=== PATIENT | female | born 1970 ===

== ENCOUNTER → 2020-12-10 09:04 | Outpatient (BNVA) | payer OTHER, SELFPAY | PROVIDERS: PCP Internal Medicine; Referring Provider Internal Medicine; Visit Provider Physician Assistant Surgical ==

== ENCOUNTER → 2020-12-16 08:20 | Outpatient (BNVA) | payer OTHER, SELFPAY | PROVIDERS: PCP Internal Medicine; Visit Provider Surgery ==

== ENCOUNTER 2020-12-18 07:39 | Outpatient (REF) | payer OTHER, SELFPAY ==
--- NOTE | ~2020-12-18 | XR_ITS ---
EXAMINATION: XR FOOT, BILATERAL CLINICAL INFORMATION: Bilateral foot pain. COMPARISON: 06/02/2017 TECHNIQUE: 3 views of each foot. FINDINGS: RIGHT FOOT: Three views of the right foot do not demonstrate any evidence of acute fracture or dislocation. No significant soft tissue swelling is appreciated. Joint spaces are maintained. Calcaneal spurs are seen at the sites of insertion of the Achilles and plantar tendons. Arterial vascular calcifications are seen. LEFT FOOT: Three views of the left foot do not demonstrate any evidence of acute fracture or dislocation. No radiopaque foreign bodies. Joint spaces are maintained. Calcaneal spurs at sites of insertion of Achilles and plantar tendons evident. Vascular calcifications are seen. XR/XR foot RT 2V IMPRESSION: Prominent bilateral calcaneal spurs at sites of insertion of plantar and Achilles tendons.
--- NOTE | ~2020-12-18 | XR_ITS ---
EXAMINATION: XR FOOT, BILATERAL CLINICAL INFORMATION: Bilateral foot pain. COMPARISON: 06/02/2017 TECHNIQUE: 3 views of each foot. FINDINGS: RIGHT FOOT: Three views of the right foot do not demonstrate any evidence of acute fracture or dislocation. No significant soft tissue swelling is appreciated. Joint spaces are maintained. Calcaneal spurs are seen at the sites of insertion of the Achilles and plantar tendons. Arterial vascular calcifications are seen. LEFT FOOT: Three views of the left foot do not demonstrate any evidence of acute fracture or dislocation. No radiopaque foreign bodies. Joint spaces are maintained. Calcaneal spurs at sites of insertion of Achilles and plantar tendons evident. Vascular calcifications are seen. XR/XR foot LT 2V IMPRESSION: Prominent bilateral calcaneal spurs at sites of insertion of plantar and Achilles tendons.
--- NOTE | ~2020-12-18 | XR_ITS ---
EXAMINATION: XR CHEST CLINICAL INFORMATION: BMI between 39 and 40 COMPARISON: March 12, 2016 TECHNIQUE: 2 views of the chest were obtained. FINDINGS: No significant abnormality is noted involving the heart, lungs, mediastinum, bony thorax or soft tissues. XR/XR chest 2V IMPRESSION: No acute disease.
--- NOTE | 2020-12-18 07:51 | ECG_ITS ---
Test Reason : z68.39 Blood Pressure : / mmHG Vent. Rate : 069 BPM Atrial Rate : 069 BPM P-R Int : 152 ms QRS Dur : 086 ms QT Int : 382 ms P-R-T Axes : 004 008 021 degrees QTc Int : 409 ms Normal sinus rhythm Normal ECG No significant changes seen Referred By: Song Bellamy Electronically Signed By:BELL CHERY MD
[2020-12-18 08:54] LABS: Basophils Percent Auto 0.3 % (0-2); Imm Gran Abs Auto 0.02 X10*3/uL (0.00-0.03); Imm Gran Pct Auto 0.3 % (0.0-0.4); MANUAL DIFF FLAG SCAN; Mean Corpuscular Hemoglobin 29.6 pg (27.0-33.0); PLT CLUMP 1; SCAN SMEAR FLAG 1
[2020-12-18 08:56] LABS: Eosinophils Absolute Auto 0.1 X10*3/uL (0.0-0.4); Eosinophils Percent Auto 2.4 % (0-4); Hematocrit 39.3 % (37-47); Hemoglobin 13.2 g/dl (12.0-16.0); Lymphocytes Absolute Auto 1.8 X10*3/uL (1.2-4.9); Lymphocytes Percent Auto 30.8 % (20-40); Mean Corpuscular HGB Conc 33.6 g/dl (31.0-35.0); Mean Corpuscular Volume 88.1 fL (80-98); Mean Platelet Volume 10.7 fL (9.4-12.3); Monocytes Absolute Auto 0.4 X10*3/uL (0.1-1.2); Monocytes Percent Auto 6.3 % (2-11); Neutrophils Absolute Auto 3.5 X10*3/uL (2.0-8.3); Neutrophils Percent Auto 59.9 % (45-73); Platelet Count 174 X10*3/uL (160-400); Red Blood Count 4.46 X10*6/uL (4.20-5.50); Red Cell Distribution Width 11.9 % (11.0-16.0); White Blood Count 5.9 X10*3/uL (4.8-10.8)
[2020-12-18 08:59] LABS: Estimated Average Glucose 203 mg/dL; Hemoglobin A1c % 8.7 %
[2020-12-18 09:13] LABS: Cholesterol 271 mg/dL; HDL Cholesterol 38 mg/dL; LDL Cholesterol Calculated 190 mg/dl; Triglycerides 219 mg/dL
[2020-12-18 09:15] LABS: Alanine Aminotransferase 32 U/L (0-31); Albumin Level 4.1 g/dL (3.5-5.0); Alkaline Phosphatase 72 U/L (39-117); Anion Gap 13 (12-20); Aspartate Amino Transferase 19 U/L (5-31); Bilirubin Total 0.4 mg/dL (0.0-1.0); Blood Urea Nitrogen 10 mg/dL (9-16); C Reactive Protein 0.46 mg/dL (< or = 0.50); Calcium 9.5 mg/dL (8.4-10.2); Carbon Dioxide 24 mmol/L (22-29); Chloride 105 mmol/L (96-108); Cholesterol 271 mg/dL; Estimated Glomerular Filt Rate > 60; Glucose Random 202 mg/dL (60-115); HDL Cholesterol 38 mg/dL; Iron 67 mcg/dL (30-160); LDL Cholesterol Calculated 190 mg/dl; Percent Iron Saturation 21 % (15-50); Potassium 4.4 mmol/L (3.3-5.1); SLIDE REVIEW VERIFIED; Sodium 138 mmol/L (135-145); Total Iron Binding Capacity 326 mcg/dL (228-428); Triglycerides 216 mg/dL; Unsaturated Iron Binding 259 ug/dL
[2020-12-18 09:39] LABS: Thyroid Stimulating Hormone 1.42 uIU/mL (0.32-4.0)
[2020-12-18 09:41] LABS: Ferritin 165 ng/mL (10-250); Insulin 15 uU/mL (2-29); TSH reflex Free T4 1.38 uIU/mL (0.32-4.0); Vitamin D 25-OH Total 17.7 ng/mL (>30)
[2020-12-18 09:51] LABS: Folate 14.8 ng/mL (> or = 4.0); Vitamin B12 339 pg/mL (200-900)
[2020-12-18 10:47] LABS: Creatinine Urine 314.71 mg/dL; Microalbum/Creatinine Ratio Ur 13.6 ug/mg cr
[2020-12-18 13:34] LABS: H Pylori Breath Test Positive (Negative)
[2020-12-22 16:01] LABS: Calcium (PTHI) 9.2 mg/dL (8.6-10.2); PTHI 59 pg/mL (14-64)
[2020-12-23 04:51] LABS: Vitamin A 42 mcg/dL (38-98)
[2020-12-23 06:21] LABS: Zinc 86 mcg/dL (60-130)
[2020-12-23 15:25] LABS: Vitamin B1 6 nmol/L (8-30)
[2020-12-25 15:21] LABS: Vitamin D 25-OH, D2 <4 ng/mL; Vitamin D 25-OH, D3 18 ng/mL; Vitamin D 25-OH, Total 18 ng/mL (30-100)
== END 2020-12-18 07:40 | disposition home or self-care (01) ==
LOC: HO.XRAY 07:39
PROVIDERS: Absent Provider Internal Medicine; PCP Internal Medicine; Visit Provider Surgery
DX: E11.65 Type 2 diabetes mellitus with hyperglycemia (principal); E55.9 Vitamin D deficiency, unspecified; E66.01 Morbid (severe) obesity due to excess calories; Z68.41 Body mass index [BMI] 40.0-44.9, adult; E78.5 Hyperlipidemia, unspecified; M79.671 Pain in right foot; M79.672 Pain in left foot
CPT/HCPCS: 36415; 71046; 73620; 80053; 80061; 82043; 82306; 82607; 82728; 82746; 83013; 83036; 83525; 83540; 83970; 84425; 84443; 84590; 84630; 85025; 86140; 93005; 99211

== ENCOUNTER → 2020-12-30 11:00 | Outpatient (BNVA) | payer OTHER, SELFPAY | PROVIDERS: PCP Internal Medicine; Referring Provider Internal Medicine; Visit Provider Dietitian, Registered | DX: E66.01 Morbid (severe) obesity due to excess calories (principal); E11.65 Type 2 diabetes mellitus with hyperglycemia; Z68.41 Body mass index [BMI] 40.0-44.9, adult | CPT/HCPCS: 97802 ==

== ENCOUNTER → 2021-01-15 08:03 | Outpatient (BNVA) | payer OTHER, SELFPAY | PROVIDERS: PCP Internal Medicine; Visit Provider Surgery ==

== ENCOUNTER 2021-01-20 08:49 | Outpatient (REF) | payer OTHER, SELFPAY ==
--- NOTE | ~2021-01-20 | FL_ITS ---
EXAMINATION: XR GI SERIES CLINICAL INFORMATION: Obesity COMPARISON: None TECHNIQUE: Upper GI with air FINDINGS: Normal swallowing reflex. Normal esophageal motility and distention. There is concavity/depression of the barium column along the the left lateral aspect of the distal esophagus at the GE junction. A mass lesion in this region cannot be excluded. There is normal passage of the barium to the stomach into the small bowel. No mass or mucosal lesions are seen in the stomach or the duodenal bulb. No evidence of hiatal hernia. No reflux is seen. FLUOROSCOPY TIME: 1.4 minutes DOSE AREA PRODUCT: 21.2 uGy-m2 (microgray-meter squared) FL/FL upper GI series IMPRESSION: 1. Concavity/depression of the barium column along the left lateral aspect of the distal esophagus at the gastroesophageal junction. The mass lesion in this region cannot be excluded. Further evaluation with cross-sectional imaging or endoscopy as clinically warranted. 2. No evidence of hiatal hernia. 3. No reflux is seen.
--- NOTE | ~2021-01-20 | US_ITS ---
EXAMINATION: US COMPLETE ABDOMEN WITH LIVER ELASTOGRAPHY CLINICAL INFORMATION: Obesity. COMPARISON: None TECHNIQUE: Real-time imaging of the abdominal viscera. Noninvasive ultrasound liver fibrosis assessment is performed using Mary Anne ElastPQ point quantification shear wave elastography (pSWE) with a C5-2 MHz transducer. Multiple elastography samples are obtained. FINDINGS: PANCREAS: Not well visualized due to bowel gas. ABDOMINAL AORTA: The proximal, middle, and distal aortic segments are normal in caliber. INFERIOR VENA CAVA: Visualized portions are normal. LIVER: Liver echotexture is increased. The liver demonstrates normal size and contour. No focal lesion or intrahepatic biliary duct dilatation. The right lobe measures 17.3 cm in length. The left lobe measures 11.6 cm in length. Portal flow is normal/hepatopetal. Shear wave liver elastography median stiffness is 1.27 m/s (reference: Normal median stiffness is 1.3 m/s or less). IQR/median stiffness to assess sampling precision is 0.17 (reference: Good quality data set is IQR/median stiffness of 0.15 or less). GALLBLADDER: The gallbladder is normal in size. No gallstones are seen. There may be mild adenomyomatosis of the gallbladder wall. COMMON BILE DUCT: The proximal common bile duct is normal in caliber measuring 0.6 cm. There is focal dilatation of the distal common bile duct measuring up to 1.7 cm. RIGHT KIDNEY: Normal. No hydronephrosis. No renal calculi or focal parenchymal lesions. The kidney measures 11.3 cm in maximum dimension. LEFT KIDNEY: Normal. No hydronephrosis. No renal calculi or focal parenchymal lesions. The kidney measures 11.3 cm in maximum dimension. SPLEEN: Normal. The spleen measures 12 cm in maximum dimension. FREE FLUID: None. US/US abdomen comp w elastography IMPRESSION: 1. Echogenic liver suggestive of fatty infiltration. Dilated distal common bile duct questionable for choledochocele or choledochocyst. Probable mild adenomyomatosis of the gallbladder wall. Limited visualization of the pancreas. 2. Liver Elastography: Adequate liver sampling. Normal liver stiffness. REFERENCE: Society of Radiologists in Ultrasound Liver Stiffness Thresholds (2020): LIVER STIFFNESS THRESHOLDS: *Liver Stiffness equal or less than 1.3 m/s: High probability of being normal. *Liver Stiffness less than 1.7 m/s: In the absence of other known clinical signs, rules out compensated advanced chronic liver disease. *Liver Stiffness 1.7-2.1 m/s: Suggestive of compensated advanced chronic liver disease but need further test for confirmation. *Liver Stiffness over 2.1 m/s: Rules in compensated advanced chronic liver disease. *Liver Stiffness over 2.4 m/s: Suggestive of clinically significant portal hypertension. QUALITY OF DATA SET: *IQR/Median value equal or less than 0.15 implies a quality data set. *IQR/Median value over 0.15 implies a poor quality data set. SIGNIFICANT CHANGE FROM PRIOR EXAM: Significant change if liver stiffness measurement is 10% or greater from prior exam. OTHER CONSIDERATIONS: The stage of liver fibrosis may be overestimated in the setting of acute hepatitis, liver inflammation, elevated liver function tests, hepatic vascular congestion, obstructive cholestasis, non-fasting state, and infiltrative diseases such as amyloidosis and lymphoma. In some patients with NAFLD, the liver stiffness thresholds for compensated advanced chronic liver disease may be lower. In causes other than viral hepatitis and NAFLD, liver stiffness thresholds are not well established.
== END 2021-01-20 08:50 | disposition home or self-care (01) ==
LOC: HO.US 08:49
PROVIDERS: PCP Internal Medicine; Visit Provider Surgery
DX: Z01.818 Encounter for other preprocedural examination (principal); K21.9 Gastro-esophageal reflux disease without esophagitis; E66.9 Obesity, unspecified; Z68.39 Body mass index [BMI] 39.0-39.9, adult; E11.65 Type 2 diabetes mellitus with hyperglycemia
CPT/HCPCS: 74240; 76705; 76981

== ENCOUNTER → 2021-01-22 08:02 | Outpatient (BNVA) | payer OTHER, SELFPAY | PROVIDERS: PCP Internal Medicine; Referring Provider Surgery; Visit Provider Dietitian, Registered | DX: E66.9 Obesity, unspecified (principal); Z68.39 Body mass index [BMI] 39.0-39.9, adult | CPT/HCPCS: 97803 ==

== ENCOUNTER 2021-01-28 08:55 | Outpatient (REF) | payer OTHER, SELFPAY ==
[2021-01-31 15:04] LABS: H Pylori Breath Test Negative (Negative)
== END 2021-01-28 08:56 | disposition home or self-care (01) ==
LOC: HO.LNP 08:55
PROVIDERS: PCP Internal Medicine; Referring Provider Internal Medicine; Visit Provider Physician Assistant
DX: Z01.818 Encounter for other preprocedural examination (principal); Z11.0 Encounter for screening for intestinal infectious diseases
CPT/HCPCS: 83013; 99211

== ENCOUNTER → 2021-02-10 08:02 | Outpatient (BNVA) | payer OTHER, SELFPAY | PROVIDERS: PCP Internal Medicine; Visit Provider Surgery ==

== ENCOUNTER 2021-02-12 06:57 | Outpatient (REF) | payer OTHER, SELFPAY ==
--- NOTE | ~2021-02-12 | CT_ITS ---
EXAMINATION: CT CHEST WITH CONTRAST CLINICAL INFORMATION: Other specified diseases of the esophagus COMPARISON: Previous chest x-ray most recent December 30 and and upper GI 01/20/2021 TECHNIQUE: Multidetector volumetric CT imaging of the chest was obtained after the administration of 85 mL of Omnipaque 350 intravenous contrast without immediate adverse reactions. Axial MIP volume rendering provided. Sagittal and coronal reformatted images were obtained. This CT examination was performed using dose optimization techniques as appropriate, variously including the following: *Automated exposure control *Adjustment of mA and/or kV according to patient size (this includes techniques or standardized protocols for targeted exams where dose is matched to indication/reason for exam; i.e. extremities or head) *Use of iterative reconstruction technique DLP: 234 mGy-cm FINDINGS: HAND DEVELOPER: Unremarkable LUNGS: The lungs are clear with no evidence of inflammation or nodules. MEDIASTINUM: The mediastinum is normal. The esophagus is unremarkable. PLEURA: There is no pleural effusion. No pleural mass or thickening. AXILLA: No lymphadenopathy. UPPER ABDOMEN: Unremarkable OSSEOUS STRUCTURES: Unremarkable. CT/CT chest w con IMPRESSION: Unremarkable examination. Fleischner guidelines were followed.
--- NOTE | ~2021-02-12 | CT_ITS ---
EXAMINATION: CT ABDOMEN AND PELVIS WITH CONTRAST CLINICAL INFORMATION: Follow-up abnormal esophagus seen on upper GI COMPARISON: None TECHNIQUE: Multidetector volumetric images were obtained from the superior aspect of the liver through the pubic symphysis following administration 85 mL of Omnipaque 350 intravenous contrast. Sagittal and coronal reformatted images were obtained on the technologist's workstation. Oral contrast: Yes This CT examination was performed using dose optimization techniques as appropriate, variously including the following: *Automated exposure control *Adjustment of mA and/or kV according to patient size (this includes techniques or standardized protocols for targeted exams where dose is matched to indication/reason for exam; i.e. extremities or head) *Use of iterative reconstruction technique DLP: 430 mGy-cm FINDINGS: LUNG BASES: The visualized lung bases are unremarkable. LIVER, GALLBLADDER, AND BILIARY TREE: The liver is normal in size and shape. Liver is slightly low in attenuation suggestive of mild fatty infiltration. No focal hepatic lesion or intrahepatic biliary ductal dilatation is present. There is focal dilatation of the proximal common bile duct measuring up to 2.2 cm. Common bile duct is normal in caliber distally in the head of the pancreas. The gallbladder is unremarkable with no evidence of radiopaque gallstones, gallbladder wall thickening, or obvious pericholecystic inflammatory changes. PANCREAS: Unremarkable. SPLEEN: Unremarkable. ADRENAL GLANDS: Unremarkable. KIDNEYS AND URETERS: The kidneys are normal in size, shape, and attenuation. No hydronephrosis, hydroureter, or calculi seen. No perinephric stranding. BLADDER: Unremarkable. GASTROINTESTINAL TRACT: The small and large bowel are unremarkable. The appendix is unremarkable. The stomach is unremarkable. The distal thoracic esophagus is normal-appearing. No mass or wall thickening is seen. The right diaphragmatic crura appear prominent adjacent to the distal thoracic esophagus, question accounting for mass effect appreciated on upper GI. ABDOMINAL WALL: No significant hernia is appreciated. LYMPH NODES: Normal. VASCULAR: Unremarkable. PELVIC VISCERA: Unremarkable. OSSEOUS STRUCTURES: Unremarkable. CT/CT abdomen pelvis w con IMPRESSION: Normal-appearing esophagus and stomach. No mass seen. The diaphragmatic crura appear prominent and may account for mass effect seen in the left distal thoracic esophagus. Focal dilatation of the common bile duct measuring up to 2.2 cm. Appearance is again questionable for choledochocele or choledochocyst. Mild fatty infiltration of the liver. Fleischner guidelines were followed.
[2021-02-12] MEDS: iohexoL 350 MG/ML 100 ML INFUS..BTL 85 ML IV (08:47)
== END 2021-02-12 06:58 | disposition home or self-care (01) ==
LOC: HO.CT 06:57
PROVIDERS: PCP Internal Medicine; Visit Provider Surgery
DX: K22.89 Other specified disease of esophagus (principal)
CPT/HCPCS: 71260; 74177; Q9967

== ENCOUNTER → 2021-03-26 08:22 | Outpatient (BNVA) | payer OTHER, SELFPAY | PROVIDERS: PCP Internal Medicine; Visit Provider Surgery ==

== ENCOUNTER 2021-04-27 15:54 | Outpatient (REF) | payer OTHER, SELFPAY ==
[2021-04-28 14:01] LABS: H Pylori Breath Test Negative (Negative)
== END 2021-04-27 15:55 | disposition home or self-care (01) ==
LOC: CF 15:54
PROVIDERS: PCP Internal Medicine; Referring Provider Internal Medicine; Visit Provider Nurse Practitioner
DX: A04.8 Other specified bacterial intestinal infections (principal); K22.89 Other specified disease of esophagus
CPT/HCPCS: 36415; 83013; 99202

== ENCOUNTER 2021-04-29 09:06 | Outpatient (REF) | payer OTHER, SELFPAY ==
[2021-04-29 09:32] LABS: MANUAL DIFF FLAG NO
[2021-04-29 09:51] LABS: Basophils Percent Auto 0.4 % (0-2); Eosinophils Absolute Auto 0.1 X10*3/uL (0.0-0.4); Eosinophils Percent Auto 1.3 % (0-4); Hematocrit 38.8 % (37.0-47.0); Hemoglobin 12.8 g/dl (12.0-16.0); Imm Gran Abs Auto 0.02 X10*3/uL (0.00-0.03); Imm Gran Pct Auto 0.4 % (0.0-0.4); Lymphocytes Absolute Auto 1.7 X10*3/uL (1.2-4.9); Lymphocytes Percent Auto 32.8 % (20-40); Mean Corpuscular Volume 91.1 fL (80.0-98.0); Monocytes Absolute Auto 0.3 X10*3/uL (0.1-1.2); Monocytes Percent Auto 6.1 % (2-11); Neutrophils Absolute Auto 3.1 x10*3/uL (2.0-8.3); Platelet Count 226 X10*3/uL (160-400); Red Blood Count 4.26 X10*6/uL (4.20-5.50); Red Cell Distribution Width 11.7 % (11.0-16.0); White Blood Count 5.2 X10*3/uL (4.8-10.8)
[2021-04-29 10:31] LABS: Alanine Aminotransferase 21 U/L (0-31); Albumin Level 4.3 g/dL (3.5-5.0); Alkaline Phosphatase 75 U/L (39-117); Anion Gap 12 (12-20); Aspartate Amino Transferase 14 U/L (5-31); Bilirubin Total 0.6 mg/dL (0.0-1.0); Blood Urea Nitrogen 14 mg/dL (9-16); Calcium 9.7 mg/dL (8.4-10.2); Carbon Dioxide 29 mmol/L (22-29); Chloride 102 mmol/L (96-108); Cholesterol 248 mg/dL; Estimated Glomerular Filt Rate > 60; Glucose Fasting 220 mg/dL (60-99); HDL Cholesterol 49 mg/dL; LDL Cholesterol Calculated 151 mg/dl; Potassium 4.7 mmol/L (3.3-5.1); Sodium 138 mmol/L (135-145); Total Protein 7.3 g/dL (6.5-8.0); Triglycerides 244 mg/dL
[2021-04-29 11:24] LABS: Creatinine Urine 204.02 mg/dL; Microalbum/Creatinine Ratio Ur 11.7 ug/mg cr
[2021-05-04 11:42] LABS: Vitamin D 25-OH, D2 <4 ng/mL; Vitamin D 25-OH, D3 25 ng/mL; Vitamin D 25-OH, Total 25 ng/mL (30-100)
== END 2021-04-29 09:07 | disposition home or self-care (01) ==
LOC: HO.LAB 09:06
PROVIDERS: Absent Provider Internal Medicine; PCP Internal Medicine; Visit Provider Nurse Practitioner
DX: A04.8 Other specified bacterial intestinal infections (principal); K22.89 Other specified disease of esophagus; E78.2 Mixed hyperlipidemia; E78.5 Hyperlipidemia, unspecified; E11.9 Type 2 diabetes mellitus without complications; E55.9 Vitamin D deficiency, unspecified
CPT/HCPCS: 36415; 80053; 80061; 82043; 82306; 85025

== ENCOUNTER → 2021-05-20 12:37 | Outpatient (BNVA) | payer OTHER, SELFPAY | PROVIDERS: PCP Internal Medicine; Referring Provider Internal Medicine; Visit Provider Nurse Practitioner | DX: A04.8 Other specified bacterial intestinal infections (principal) | CPT/HCPCS: 99212 ==

== ENCOUNTER → 2021-08-06 12:50 | Outpatient (BNVA) | payer OTHER, SELFPAY | PROVIDERS: PCP Internal Medicine; Visit Provider Internal Medicine Endocrinology, Diabetes & Metabolism | DX: E11.65 Type 2 diabetes mellitus with hyperglycemia (principal); E78.2 Mixed hyperlipidemia | CPT/HCPCS: 82947; 83036; 99202 ==

== ENCOUNTER 2021-10-15 13:06 | Emergency (ER) | payer OTHER, SELFPAY ==
--- NOTE | ~2021-10-15 | XR_ITS ---
EXAMINATION: XR FOOT, RIGHT CLINICAL INFORMATION: Rule out heel foreign body. COMPARISON: None TECHNIQUE: AP, lateral, and oblique views of the right foot. FINDINGS: There is no acute fracture or dislocation. The tarsal bones are normally aligned. Small plantar and retrocalcaneal spurs are noted. Mild to moderate small vessel atherosclerosis is seen. There is mild soft tissue swelling. No radiopaque foreign body. XR/XR foot RT 2V IMPRESSION: 1. Mild soft tissue swelling without radiopaque foreign body. 2. Small degenerative calcaneal spurs.
[2021-10-15 13:49] VITALS: BP 159/99; PULSE 100; RESP 18; TEMP 36.8; O2SAT 97; BMI 39.0
--- NOTE | 2021-10-15 14:34 | ED_ITS ---
HPI - Extremity Injury (Lower) General Chief Complaint: Extremity Injury, Lower Stated Complaint: R foot pain Time Seen by Provider: 10/15/21 14:20 Source: patient Mode of arrival: ambulatory Limitations: no limitations History of Present Illness HPI Narrative: Patient presents emergency department for evaluation of right heel pain. She states that she was walking at home barefoot, believes that she stepped on a piece of uncooked rice. She wiped this off of her foot. Now she is experiencing localized pain to the heel when she is bearing weight/walking. She reports a small red yordy to the bottom of her foot. She is concerned that there is a foreign body within the foot. Related Data Previous Rx's Medication Instructions Recorded mecobalamin (vitamin B12) 1,000 1,000 mcg sublingual DAILY #30 tabs 12/24/20 mcg disintegrating tablet,sublingual thiamine HCl (vitamin B1) 100 mg 100 mg PO DAILY #30 tabs 12/24/20 tablet docusate sodium 250 mg capsule 250 mg PO BEDTIME PRN constipation 02/10/21 30 days #30 caps cholecalciferol (vitamin D3) 125 125 mcg PO DAILY #30 caps 05/04/21 mcg (5,000 unit) capsule blood sugar diagnostic (FreeStyle #50 ea 08/05/21 Lite Strips) dulaglutide 1.5 mg/0.5 mL 1.5 mg (0.5 mL) subcut QWEEK #2 mL 08/06/21 subcutaneous pen injector (Trulicity) pioglitazone 15 mg tablet (Actos) 15 mg PO DAILY #30 tabs 08/06/21 atorvastatin 40 mg tablet (Lipitor) 40 mg PO DAILY #30 tabs 08/15/21 Allergies Allergy/AdvReac Type Severity Reaction Status Date / Time metformin AdvReac Intermediate elevated Verified 10/15/21 13:49 blood sugar Review of Systems Review of Systems: Musculoskeletal: Positive foot pain as noted in the HPI Yes all other systems are reviewed and are negative PMFSH Past Medical History Attestation statement: The following information was validated with the patient. Source: old records reviewed Medical History Constipation by delayed colonic transit Diabetes type 2, uncontrolled TEREZA (generalized anxiety disorder) Left foot pain Minimal recurrent major depressive disorder Mixed hyperlipidemia Morbid obesity with BMI of 40.0-44.9, adult Right foot pain Surgical History History of colonoscopy History of endoscopy History of tubal ligation History of wisdom tooth extraction Family History Family History Mother Hypertension Diabetes Father Anxiety and depression Sister Hypertension Brother No problems noted. Brother No problems noted. Brother No problems noted. Daughter No problems noted. Son No problems noted. Son No problems noted. Son No problems noted. Social History Social History Housing: Apartment Alcohol intake: current Alcohol intake frequency: holidays/special occasions only Alcohol type: wine Patient Tobacco Use Status: Never used Tobacco e-Cigarette/Vaping Use: Never Used Second Hand Smoke Exposure: No Advance Directives: No Advance Directives Information Provided: No service: No Current occupational status: unemployed Cognitive needs: No Hearing needs: No Vision needs: No Physical Exam Vital Signs: Vital Signs: Last Vital Signs Temp 98.6 F 10/15/21 15:48 Pulse 75 10/15/21 15:48 Resp 17 10/15/21 15:48 BP 151/89 H 10/15/21 15:48 Pulse Ox 99 10/15/21 15:48 O2 Del Method 10/15/21 15:48 BMI result Body Mass Index 39.0 Appearance: Alert.?Oriented to person, place and time. No acute distress.?Normal affect.?? Neck: Normal inspection.? Neck supple.?? CVS: Heart sounds normal. Normal heart rate and rhythm.? Pulses normal.?? Respiratory: No respiratory distress.? Lung sounds clear to auscultation bilaterally?? Abdomen: Soft and non-tender. Skin: Skin warm and dry.? Normal skin color.? Extremities: No lower extremity edema.? No calf ttp. Positive 2+ DP/PT pulse bilaterally. Right heel with pinpoint red yordy, no surrounding erythema, swelling. No palpable foreign body. Neuro: Moves all extremities spontaneously. Sensation intact bilaterally. No mo tor deficits. Ambulates with normal steady gait. Course Course Course Narrative: Patient is a 51-year-old female with a past medical history of hyperlipidemia, obesity, anxiety wound type 2 diabetes presents emergency department for evaluation of right foot pain. XR the right foot obtained to exclude foreign body, which reveals mild soft tissue swelling without radiopaque foreign body. Not consistent with cellulitis, or concerning for infection. Discussed rest, ice, elevation of foot when possible. Follow up primary care provider as needed. Discussed worrisome signs and symptoms return back to emergency department for. All questions were answered, and patient was discharged home in stable condition, ambulatory with a steady gait. MDM - Extremity Injury (Lower) Medical Records Attestation: I reviewed the patient's medical records. Lab Data Attestation: I reviewed the patient's lab results. Imaging Data XR foot: Radiologist's impression: XR/XR foot RT 2V IMPRESSION: ? 1. Mild soft tissue swelling without radiopaque foreign body. 2. Small degenerative calcaneal spurs. Discharge Plan Discharge Clinical Impression: Acute pain of right foot Patient Disposition: Home, Self-Care Additional Instructions: The x-ray of your right foot was normal. Does not show any radiopaque foreign body left in your foot. Be sure to rest, ice, elevate the foot when possible, you may soak your foot in warm water additionally. Tylenol may be used as needed for pain. Follow-up with your primary care provider as needed. Prescriptions: No Action thiamine HCl (vitamin B1) 100 mg tablet 100 mg PO DAILY Qty: 30 2RF mecobalamin (vitamin B12) 1,000 mcg tablet,disintegrating 1,000 mcg sublingual DAILY Qty: 30 2RF Rx Instructions: place tablet under tongue and allow to dissolve for at least30 secs before swallowing cholecalciferol (vitamin D3) 125 mcg (5,000 unit) capsule 125 mcg PO DAILY Qty: 30 2RF (DME) FreeStyle Lite Strips Strip See Rx Instructions .ROUTE .MEDSUPPLY Qty: 50 5RF Rx Instructions: Twice a day atorvastatin [Lipitor] 40 mg tablet 40 mg PO DAILY Qty: 30 5RF docusate sodium 250 mg capsule 250 mg PO BEDTIME PRN (Reason: constipation) 30 Days Qty: 30 2RF Trulicity 1.5 mg/0.5 mL pen injector 1.5 mg subcut QWEEK Qty: 2 5RF pioglitazone [Actos] 15 mg tablet 15 mg PO DAILY Qty: 30 4RF Interventions: ED Discharge Assessment Last Done: 10/15/21 15:54 Discharge Date/Time: 10/15/21 15:56
[2021-10-15 15:48] VITALS: BP 151/89; PULSE 75; RESP 17; TEMP 37; O2SAT 99
== END 2021-10-15 15:56 | disposition home or self-care (01) ==
PROVIDERS: Emergency Provider Emergency Medicine; PCP Internal Medicine
DX: M79.671 Pain in right foot (principal); Z79.899 Other long term (current) drug therapy
CPT/HCPCS: 73620; 99283

== ENCOUNTER 2022-05-05 13:15 | Emergency (ER) | payer OTHER, SELFPAY ==
--- NOTE | 2022-05-05 13:43 | ED.EAR ---
HPI - Ear Problem General Chief complaint: Ear Problems Stated complaint: both ear pain and sore throat Time Seen by Provider: 05/05/22 15:22 Source: patient Mode of arrival: ambulatory Limitations: no limitations History of Present Illness HPI Narrative: Patient is a 52-year-old female who presents emergency department for evaluation of bilateral ear pain and sore throat x 2 days. Denies difficulty swallowing, denies any drainage from the ear, denies decreased hearing. Denies known sick contacts. Denies any fevers or chills, cough, shortness of breath, difficulty breathing, chest pain, nausea vomiting, abdominal pain. Related Data Previous Rx's Medication Instructions Recorded mecobalamin (vitamin B12) 1,000 1,000 mcg sublingual DAILY #30 tabs 12/24/20 mcg disintegrating tablet,sublingual thiamine HCl (vitamin B1) 100 mg 100 mg PO DAILY #30 tabs 12/24/20 tablet docusate sodium 250 mg capsule 250 mg PO BEDTIME PRN constipation 02/10/21 30 days #30 caps cholecalciferol (vitamin D3) 125 125 mcg PO DAILY #30 caps 05/04/21 mcg (5,000 unit) capsule blood sugar diagnostic (FreeStyle #50 ea 08/05/21 Lite Strips) atorvastatin 40 mg tablet (Lipitor) 40 mg PO DAILY #30 tabs 08/15/21 blood-glucose meter (FreeStyle #1 ea 03/22/22 Lite Meter kit) pioglitazone 15 mg tablet (Actos) 15 mg PO DAILY #30 tabs 03/28/22 semaglutide 0.25 mg or 0.5 mg (2 0.25 mg (0.2 mL) subcut QWEEK 90 04/06/22 mg/1.5 mL) subcutaneous pen days #2.6 mL injector (Ozempic) amoxicillin 875 mg-potassium 1 tab PO BID #14 tabs 05/05/22 clavulanate 125 mg tablet Allergies Allergy/AdvReac Type Severity Reaction Status Date / Time metformin AdvReac Intermediate elevated Verified 10/15/21 13:49 blood sugar Review of Systems Review of Systems: Yes all other systems are reviewed and are negative PMFSH Past Medical History Attestation statement: The following information was validated with the patient. Source: old records reviewed Medical History Constipation by delayed colonic transit Diabetes type 2, uncontrolled TEREZA (generalized anxiety disorder) Left foot pain Minimal recurrent major depressive disorder Mixed hyperlipidemia Morbid obesity with BMI of 40.0-44.9, adult Right foot pain Surgical History History of colonoscopy History of endoscopy History of tubal ligation History of wisdom tooth extraction Family History Family History Mother Hypertension Diabetes Father Anxiety and depression Sister Hypertension Brother No problems noted. Brother No problems noted. Brother No problems noted. Daughter No problems noted. Son No problems noted. Son No problems noted. Son No problems noted. Social History Social History Housing: Apartment Alcohol intake: current Alcohol intake frequency: holidays/special occasions only Alcohol type: wine Patient Tobacco Use Status: Never used Tobacco e-Cigarette/Vaping Use: Never Used Second Hand Smoke Exposure: No Advance Directives: No Advance Directives Information Provided: No service: No Current occupational status: unemployed Cognitive needs: No Hearing needs: No Vision needs: No Physical Exam Vital Signs: Vital Signs: Last Vital Signs Temp 98.3 F 05/05/22 13:44 Pulse 69 05/05/22 13:44 Resp 20 05/05/22 13:44 BP 142/89 H 05/05/22 13:44 Pulse Ox 100 05/05/22 13:44 O2 Del Method 05/05/22 13:44 BMI result Body Mass Index 39.0 Appearance: Alert.?Oriented to person, place and time. No acute distress.?Normal affect. Eyes: Pupils equal, round and reactive to light.? ENT: TM on right with mild effusion, no erythema or bulging. Left TM erythematous, bulging, with opacity. Pharynx mildly erythematous without exudates, tonsillar hypertrophy, uvula is midline, no trismus, no drooling. Neck: Normal inspection.? Neck supple.??No cervical adenopathy CVS: Heart sounds normal. Normal heart rate and rhythm.? Pulses normal.?? Respiratory: No respiratory distress.? Lung sounds clear to auscultation bilaterally?? Abdomen: Soft and non-tender. Normoactive bowel sounds. Skin: Skin warm and dry.? Normal skin color.? ? Extremities: No lower extremity edema.? Neuro: Moves all extremities spontaneously. Sensation intact bilaterally. No motor deficits. Ambulates with normal steady gait. Medical Decision Making Medical Decision Making [facility] Narrative: Patient is a 52-year-old female who presents emergency department for evaluation of bilateral ear pain and sore throat. COVID-19 influenza testing are negative. She is overall well-appearing, nontoxic and afebrile. She is tolerating oral intake. Physical examination is consistent with otitis media with effusion of the right and acute otitis media of the left, both without spontaneous rupture. Not consistent with otitis externa. Discussed with patient possible viral etiology of symptoms given additional sore throat, however there is no evidence of strep pharyngitis, peritonsillar retropharyngeal abscess. Differential Diagnosis Differential Diagnoses: The differential diagnosis associated with the presentation includes Lab Data [facility] Lab Attestation statement: I reviewed the patient's lab results. Labs: Lab Results 05/05/22 05/05/22 Range/Units 14:44 14:44 COVID-19 ([facility]) Negative (Negative) COVID-19 Clin Com See Note Influenza Type A ([facility]) Negative (Negative) Influenza Type B ([facility]) Negative (Negative) Influenza A & B Note See Note Prescription Management I considered prescription management with: Pain Medication and Antibiotic Discharge Plan Discharge Clinical Impression: Acute otitis media Qualifiers: Laterality: left Recurrence: non-recurrent Spontaneous tympanic membrane rupture: without spontaneous rupture Patient Disposition: Home, Self-Care Instructions: Ear Infection (ED) Additional Instructions: Testing today for COVID and flu both negative. Your left ear appears to have an acute infection. A prescription for Augmentin was sent to the pharmacy, please complete this entire course. You may also use Tylenol alternating with ibuprofen as needed for fever and pain. Do not insert anything into the ear canal as this may increase the risk of rupturing your ear drum. Follow-up with your primary care provider as needed. Prescriptions: New amoxicillin-pot clavulanate 875-125 mg tablet 1 tab PO BID Qty: 14 0RF No Action thiamine HCl (vitamin B1) 100 mg tablet 100 mg PO DAILY Qty: 30 2RF mecobalamin (vitamin B12) 1,000 mcg tablet,disintegrating 1,000 mcg sublingual DAILY Qty: 30 2RF Rx Instructions: place tablet under tongue and allow to dissolve for at least30 secs before swallowing cholecalciferol (vitamin D3) 125 mcg (5,000 unit) capsule 125 mcg PO DAILY Qty: 30 2RF (DME) FreeStyle Lite Strips Strip See Rx Instructions .ROUTE .MEDSUPPLY Qty: 50 5RF Rx Instructions: Twice a day atorvastatin [Lipitor] 40 mg tablet 40 mg PO DAILY Qty: 30 5RF (DME) blood-glucose meter [FreeStyle Lite Meter] Kit See Rx Instructions .Route Qty: 1 0RF Rx Instructions: As directed pioglitazone [Actos] 15 mg tablet 15 mg PO DAILY Qty: 30 4RF Ozempic 0.25 mg or 0.5 mg(2 mg/1.5 mL) pen injector 0.25 mg subcut QWEEK 90 Days Qty: 2.6 3RF Rx Instructions: for 4 doses docusate sodium 250 mg capsule 250 mg PO BEDTIME PRN (Reason: constipation) 30 Days Qty: 30 2RF Referrals: Alice Friedman MD [Primary Care Provider] -
[2022-05-05 13:44] VITALS: BP 142/89; PULSE 69; RESP 20; TEMP 36.8; O2SAT 100; BMI 39.0
[2022-05-05 15:10] LABS: COVID-19 Test Negative (Negative); IDNOW Serial# 16C4AD1C; IDNOW Serial# BCCEAD1C; Influenza A Negative (Negative); Influenza B2 Negative (Negative)
--- NOTE | 2022-05-05 15:29 | PC.NURSE ---
reassessed and discharged by provider in triage
== END 2022-05-05 15:34 | disposition home or self-care (01) ==
LOC: HO.ED 15:27
PROVIDERS: Nurse Practitioner Family; Emergency Provider Emergency Medicine; PCP Internal Medicine
DX: H66.92 Otitis media, unspecified, left ear (principal); J02.9 Acute pharyngitis, unspecified; Z20.822 Contact with and (suspected) exposure to COVID-19; E11.9 Type 2 diabetes mellitus without complications; E78.5 Hyperlipidemia, unspecified; E66.9 Obesity, unspecified; Z68.39 Body mass index [BMI] 39.0-39.9, adult; Z79.02 Long term (current) use of antithrombotics/antiplatelets; Z79.899 Other long term (current) drug therapy
CPT/HCPCS: 87502; 87635; 99281; 99283

== ENCOUNTER 2022-09-19 12:14 | Emergency (ER) | payer OTHER, SELFPAY ==
--- NOTE | 2022-09-19 12:23 | ED_ITS ---
HPI - General Adult General Chief complaint: Extremity Injury, Upper Stated complaint: L elbow pain Time Seen by Provider: 09/19/22 13:13 Source: patient and prop attendant Mode of arrival: ambulatory Limitations: language barrier History of Present Illness HPI narrative: Patient is a 52 year old assigned female at with a history of DM presenting to the emergency department today with left elbow pain. Patient st ates that for weeks her left elbow has been hurting her. Patient states that the pain is much worse when she extends and goes down into her forearm and up into her upper arm. 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 Patient denies any dizziness, lightheadedness, abdominal pain, nausea, vomiting, fever, chills, blurry vision, double vision, loss of vision, chest pain, difficulty breathing, shortness of breath, back pain, night sweats, pain with urination, increased urinary frequency, increased urinary urgency, blood in her urine or stool, syncope or a near syncopal episode, recent trauma or falls, bowel incontinence, bladder incontinence, bowel retention, bladder retention, or any other complaints at this time. Onset (ago): week(s) Location: left and upper extremity Radiation: extremity Severity: mild Severity scale (1-10): 3 Quality: aching and dull Pain Consistency: constant Relieving factors: none Exacerbating factors: movement Associated symptoms: denies other symptoms Treatments prior to arrival: none Related Data Previous Rx's Medication Instructions Recorded mecobalamin (vitamin B12) 1,000 1,000 mcg sublingual DAILY #30 tabs 12/24/20 mcg disintegrating tablet,sublingual thiamine HCl (vitamin B1) 100 mg 100 mg PO DAILY #30 tabs 12/24/20 tablet docusate sodium 250 mg capsule 250 mg PO BEDTIME PRN constipation 02/10/21 30 days #30 caps cholecalciferol (vitamin D3) 125 125 mcg PO DAILY #30 caps 05/04/21 mcg (5,000 unit) capsule blood sugar diagnostic (FreeStyle #50 ea 08/05/21 Lite Strips) atorvastatin 40 mg tablet (Lipitor) 40 mg PO DAILY #30 tabs 08/15/21 blood-glucose meter (FreeStyle #1 ea 03/22/22 Lite Meter kit) pioglitazone 15 mg tablet (Actos) 15 mg PO DAILY #30 tabs 03/28/22 semaglutide 0.25 mg or 0.5 mg (2 0.25 mg (0.2 mL) subcut QWEEK 90 04/06/22 mg/1.5 mL) subcutaneous pen days #2.6 mL injector (Ozempic) amoxicillin 875 mg-potassium 1 tab PO BID #14 tabs 05/05/22 clavulanate 125 mg tablet prednisone 20 mg tablet 20 mg PO DAILY 7 days #7 tabs 09/19/22 Allergies Allergy/AdvReac Type Severity Reaction Status Date / Time metformin AdvReac Intermediate elevated Verified 09/19/22 12:24 blood sugar Review of Systems Constitutional: Constitutional: Reports no additional constitutional complaints, Denies chills, Denies fever(s) and Denies night sweats Eyes: Eyes: Reports no additional eye complaints, Denies blurry vision, Denies change in vision, Denies diplopia, Denies eye discharge, Denies loss of vision and Denies eye pain ENT: Denies dizziness Cardiovascular: Cardiovascular: Reports no additional cardiovascular complaints, Denies chest pain, Denies lightheadedness, Denies Loss of Consciousness and Denies dyspnea Respiratory: Respiratory: Reports no additional respiratory complaints and Denies dyspnea Gastrointestinal: Gastrointestinal: Reports no additional gastrointestinal complaints, Denies abdominal pain, Denies melena, Denies hematochezia, Denies change in bowel habits and Denies change in stool character Genitourinary: Genitourinary: Denies hematuria, Denies urinary frequency, Denies dysuria, Denies urinary incontinence, Denies urinary hesitancy and Denies urinary urgency Musculoskeletal: Musculoskeletal: Reports no additional musculoskeletal complaints, Denies numbness and Denies tingling Comments: left elbow pain Neurologic: Denies dizziness, Denies loss of vision, Denies numbness and D enies tingling Psychiatric: Psychiatric: Reports no additional psychiatric complaints Endocrine: Endocrine: Reports no additional endocrine complaints Hematologic/Lymphatic: Hematologic/Lymphatic: Reports no additional hematologic/lymphatic complaints Allergic/Immunologic: Allergic/Immunologic: Reports no additional allergic/immunologic complaints PMFSH Past Medical History Attestation statement: The following information was validated with the patient. Source: old records reviewed and nursing notes reviewed Medical History Constipation by delayed colonic transit Diabetes type 2, uncontrolled TEREZA (generalized anxiety disorder) Left foot pain Minimal recurrent major depressive disorder Mixed hyperlipidemia Morbid obesity with BMI of 40.0-44.9, adult Right foot pain Surgical History History of colonoscopy History of endoscopy History of tubal ligation History of wisdom tooth extraction Family History Family History Mother Hypertension Diabetes Father Anxiety and depression Sister Hypertension Brother No problems noted. Brother No problems noted. Brother No problems noted. Daughter No problems noted. Son No problems noted. Son No problems noted. Son No problems noted. Social History Social History Housing: Apartment Alcohol intake: current Alcohol intake frequency: holidays/special occasions only Alcohol type: wine Patient Tobacco Use Status: Never used Tobacco e-Cigarette/Vaping Use: Never Used Second Hand Smoke Exposure: No Advance Directives: No Advance Directives Information Provided: Yes service: No Current occupational status: unemployed Cognitive needs: No Hearing needs: No Vision needs: No Physical Exam ED Vital Signs: Vital Signs - 24 hr 09/19/22 12:24 Temperature 98 F Pulse Rate 68 Respiratory Rate 19 Blood Pressure 133/68 Pulse Oximetry 98 Oxygen Delivery Method Room Air BMI result Body Mass Index 31.2 Const General: cooperative, no acute distress, alert and awake Nutritional Appearance: well nourished Orientation/consciousness: patient oriented x3 Limitations: no limitations HENMT Head: Yes normal to inspection and Yes atraumatic Ears: hearing grossly normal bilaterally and external ears normal General nose exam: Normal external nose present, no nasal discharge noted and no epistaxis Face and sinus: Yes normal facial exam, No abrasion and No laceration Mouth: Normal oral and palatal mucosa present, no drooling and no muffled voice Eyes General: appearance normal, both eyes and all related structures Periorbital: periorbital findings normal Eyelids: Yes eyelids normal Conjunctivae: conjunctivae normal Pupils: Equal, round and reactive pupils present EOM: EOMs intact bilaterally Neck Neck: Yes normal visual inspection, Yes full ROM and Yes no lymphadenopathy Chest Chest palpation & inspection: normal inspection of the chest Resp Effort & Inspection: normal respiratory effort and able to speak in complete sentences GI Inspection: Yes normal to inspection Neuro General: patient oriented x3 and moves all extremities Cranial nerves: Yes Equal, round and reactive pupils present Cognition (Neuro): normal cognition Motor exam (neuro): 5/5 motor strength present throughout Sensory Exam: Normal double simultaneous stimulation for sensation Coordination: [id number] test normal Extrem General: Yes normal to inspection, Yes full ROM and Yes capillary refill normal Psych Appearance: grossly normal Mental Status: mental status grossly normal Affect: normal affect Attitude: cooperative Thought process: Normal thought process present Thought content: Normal thought content present Insight: Good insight present (Psych) Course Course Course Narrative: This is an RME: Additional HPI, ROS, PE not included below will be deferred to primary provider. Patient is a 52 yo female with a PMH of esophageal mass and hyperlipidemia presenting with atraumatic left elbow pain for one week that is constant. Patient reports intact ROM of L shoulder, elbow, wrist, and fingers but the elbow hurts with movement and she cannot lift anything heavy on that side. Patient denies fever, chills, nausea, vomiting, numbness, tingling, chest pain, and shortness of breath. Plan: imaging Medical Decision Making Medical Decision Making [facility] Narrative: Patient is a 52 year old assigned female at with a history of DM presenting to the emergency department today with left elbow pain. Patient's physical exam was unremarkable. Patient's blood work was unremarkable. Patient's EKG was unremarkable. Patient's left elbow x-ray showed no acute process. I explained my physical exam findings as well as all test results to the patient. I answered all questions asked by the patient. I stressed the importance of the patient taking her medication as prescribed. I stressed the importance of the patient following up with her primary care provider and an orthopedic provider. I stressed the importance of the patient returning to the emergency department immediately if her symptoms were to worsen or if she were to develop any dizziness, shortness of breath, difficulty breathing, chest pain, blurry vision, loss of vision, nausea, vomiting, abdominal pain, fever, chills, back pain, or any other complaints. Patient verbalized agreement and understanding with this treatment plan and discharge. Differential Diagnosis Differential Diagnoses: The differential diagnosis associated with the presentation includes Tendonitis Tennis elbow Cubital tunnel syndrome NSTEMI STEMI Admission/Observation Consideration of admission/observation: Escalation of care including admission/observation considered Patient would have been admitted to the hospital had her work up had any finding s where hospital admission was appropriate and her clinical presentation warranted hospital admission. Lab Data [facility] Lab Attestation statement: I reviewed the patient's lab results. My interpretation of these studies and their corresponding values is that they are grossly normal. 09/19/22 13:11 09/19/22 13:11 Labs: Lab Results 09/19/22 09/19/22 09/19/22 Range/Units 13:11 13:11 13:11 WBC 6.1 (4.8-10.8) X10*3/uL RBC 4.39 (4.20-5.50) X10*6/uL Hgb 13.2 (12.0-16.0) g/dl Hct 39.5 (37.0-47.0) % MCV 90.0 (80.0-98.0) fL MCH 30.1 (27.0-33.0) pg MCHC 33.4 (31.0-35.0) g/dl RDW 12.0 (11.0-16.0) % Plt Count 181 (160-400) X10*3/uL MPV 10.6 (9.4-12.3) fL Immature Gran % (Auto) 0.5 H (0.0-0.4) % Neut % (Auto) 61.0 (45-73) % Lymph % (Auto) 29.7 (20-40) % [place] % (Auto) 6.2 (2-11) % Eos % (Auto) 2.1 (0-4) % Baso % (Auto) 0.5 (0-2) % Lymph # (Auto) 1.8 (1.2-4.9) X10*3/uL [place] # (Auto) 0.4 (0.1-1.2) X10*3/uL Eos # (Auto) 0.1 (0.0-0.4) X10*3/uL Baso # (Auto) 0.0 (0.0-0.2) X10*3/uL Abs Immat Gran (auto) 0.03 (0.00-0.03) X10*3/uL Absolute Neuts (auto) 3.7 (2.0-8.3) x10*3/uL Absolute Nucleated RBC 0.000 (0.0-0.012) X10*3/uL Nucleated RBC % (auto) 0.0 (0.0-0.2) /100WBC Sodium 137 (135-145) mmol/L Potassium 4.7 (3.3-5.1) mmol/L Chloride 106 (96-108) mmol/L Carbon Dioxide 21 L (22-29) mmol/L Anion Gap 15 (12-20) BUN 12 (9-16) mg/dL Creatinine 0.78 (0.5-1.4) mg/dL Estim Creat Clear Calc 75.8 Estimated GFR > 60 Random Glucose 222 H (60-115) mg/dL Calcium 9.4 (8.4-10.2) mg/dL Total Bilirubin 0.4 (0.0-1.0) mg/dL AST 15 (5-31) U/L ALT 23 (0-31) U/L Alkaline Phosphatase 71 (39-117) U/L Troponin I High Sens < 2.7 (<3.5-17.0) ng/L Total Protein 7.4 (6.5-8.0) g/dL Albumin 4.0 (3.5-5.0) g/dL Independent Interpretation I performed an independent interpretation of an: EKG and Plain X-Ray Interpretation: My interpretation is in agreement with the radiologist's impression of this imaging study. EXAMINATION: XR ELBOW, LEFT CLINICAL INFORMATION: Left elbow pain.? COMPARISON: None available.? TECHNIQUE: AP, lateral, and oblique views of the left elbow. FINDINGS: Alignment is anatomic. Joint spaces are maintained. No displaced fracture or dislocation. No significant joint effusion.? XR/XR elbow LT min 3V IMPRESSION: No acute abnormality. Dictated By: Santa Alcala MD Signed By: Electronically signed by Santa Alcala MD 09/19/22 1329 Vent. Rate: 068 BPM ? ? Atrial Rate: 068 BPM P-R Int: 148 ms? QRS Dur: 078 ms QT Int: 398 ms ? ? ? P-R-T Axes: 021 007 013 degrees QTc Int: 423 ms ? Normal sinus rhythm Normal ECG When compared to the previous EKG of No significant changes seen Electronically Signed By:CLAY CASSIDY MD Dictated By: Clay Cassidy MD Signed By: Electronically signed by Clay Cassidy MD 09/19/22 1611 Radiology Impression Discussion of test interpretation with radiology: I have reviewed the radiologist's reading. Prescription Management I considered prescription management with: Other (steroids prescribed.) Chronic Conditions Patient?s care impacted by: Diabetes Discharge Plan Discharge Clinical Impression: Tendonitis Patient Disposition: Home, Self-Care Instructions: Tendinitis (ED) Additional Instructions: Follow up with your primary care provider and an orthopedic provider. Return to the emergency department immediately if your symptoms worsen or if you develop any dizziness, shortness of breath, difficulty breathing, chest pain, blurry vision, loss of vision, nausea, vomiting, abdominal pain, fever, chills, back pain, or any other complaints. Prescriptions: New prednisone 20 mg tablet 20 mg PO DAILY 7 Days Qty: 7 0RF No Action thiamine HCl (vitamin B1) 100 mg tablet 100 mg PO DAILY Qty: 30 2RF mecobalamin (vitamin B12) 1,000 mcg tablet,disintegrating 1,000 mcg sublingual DAILY Qty: 30 2RF Rx Instructions: place tablet under tongue and allow to dissolve for at least30 secs before swallowing cholecalciferol (vitamin D3) 125 mcg (5,000 unit) capsule 125 mcg PO DAILY Qty: 30 2RF (DME) FreeStyle Lite Strips Strip See Rx Instructions .ROUTE .MEDSUPPLY Qty: 50 5RF Rx Instructions: Twice a day atorvastatin [Lipitor] 40 mg tablet 40 mg PO DAILY Qty: 30 5RF (DME) blood-glucose meter [FreeStyle Lite Meter] Kit See Rx Instructions .Route Qty: 1 0RF Rx Instructions: As directed pioglitazone [Actos] 15 mg tablet 15 mg PO DAILY Qty: 30 4RF Ozempic 0.25 mg or 0.5 mg(2 mg/1.5 mL) pen injector 0.25 mg subcut QWEEK 90 Days Qty: 2.6 3RF Rx Instructions: for 4 doses amoxicillin-pot clavulanate 875-125 mg tablet 1 tab PO BID Qty: 14 0RF docusate sodium 250 mg capsule 250 mg PO BEDTIME PRN (Reason: constipation) 30 Days Qty: 30 2RF Referrals: [facility] [Provider Group] (Call to establish and follow up with an orthopedic provider. ) Alice Friedman MD [Primary Care Provider] - Stand Alone Forms: Work/School Release Interventions: ED Discharge Assessment Last Done: 09/19/22 14:18 Discharge Date/Time: 09/19/22 14:18 Print Language: Welsh
[2022-09-19 12:24] VITALS: BP 133/68; PULSE 68; RESP 19; TEMP 36.6; O2SAT 98; BMI 31.2
[2022-09-19 13:38] LABS: Alanine Aminotransferase 23 U/L (0-31); Alkaline Phosphatase 71 U/L (39-117); Anion Gap 15 (12-20); Aspartate Amino Transferase 15 U/L (5-31); Bilirubin Total 0.4 mg/dL (0.0-1.0); Blood Urea Nitrogen 12 mg/dL (9-16); Calcium 9.4 mg/dL (8.4-10.2); Carbon Dioxide 21 mmol/L (22-29); Chloride 106 mmol/L (96-108); Creatinine Clr Calc Pharmacy 75.8; Estimated Glomerular Filt Rate > 60; Glucose Random 222 mg/dL (60-115); Potassium 4.7 mmol/L (3.3-5.1); Sodium 137 mmol/L (135-145); Total Protein 7.4 g/dL (6.5-8.0)
== END 2022-09-19 14:18 | disposition home or self-care (01) ==
PROVIDERS: Physician Assistant; Emergency Provider Emergency Medicine; PCP Internal Medicine
DX: M65.232 Calcific tendinitis, left forearm (principal); M25.522 Pain in left elbow; R94.31 Abnormal electrocardiogram [ECG] [EKG]; Z79.899 Other long term (current) drug therapy
CPT/HCPCS: 36415; 73080; 80053; 84484; 85025; 93005; 99283

== ENCOUNTER → 2022-09-19 12:27 | Outpatient (BNV) | payer OTHER, SELFPAY | PROVIDERS: Emergency Provider Emergency Medicine; PCP Internal Medicine; Visit Provider Internal Medicine Cardiovascular Disease | DX: M79.603 Pain in arm, unspecified (principal) | CPT/HCPCS: 93010 ==

== ENCOUNTER 2022-12-13 10:33 | Emergency (ER) | payer OTHER, SELFPAY ==
[2022-12-13 10:40] VITALS: BP 138/82; PULSE 97; RESP 18; TEMP 36.5; O2SAT 96; BMI 37.7
--- NOTE | 2022-12-13 11:04 | ED_ITS ---
HPI - URI/Sore Throat General Chief Complaint: Upper Respiratory Symptoms Stated Complaint: CP/Ear pain/Sore throat Time Seen by Provider: 12/13/22 10:59 Source: patient Mode of arrival: ambulatory Limitations: no limitations History of Present Illness HPI Narrative: 52 year old female wtih pmhx significant for T2DM, HDL, TEREZA, and MDD who presents to the ED today with a complaint of headache, body aches, left ear pain, sore throat, and chest discomfort upon coughing x3 days. States her symptoms began with a sore throat. She now complains of a nonproductive cough, headaches and body aches. Has not taken her temp at home however reports feeling warm. Admits to taking tylenol at home with some relief. Denies fever, chills, sweats, vision changes. rash, sputum production, difficulty swallowing or speaking, SOB, wheezing, dyspnea, abd pain, N/V, constipation, diarrhea, dysuria or hematuria. No known sick contacts. No recent travel. No history of asthma. Related Data Previous Rx's Medication Instructions Recorded mecobalamin (vitamin B12) 1,000 1,000 mcg sublingual DAILY #30 tabs 12/24/20 mcg disintegrating tablet,sublingual thiamine HCl (vitamin B1) 100 mg 100 mg PO DAILY #30 tabs 12/24/20 tablet docusate sodium 250 mg capsule 250 mg PO BEDTIME PRN constipation 02/10/21 30 days #30 caps cholecalciferol (vitamin D3) 125 125 mcg PO DAILY #30 caps 05/04/21 mcg (5,000 unit) capsule blood sugar diagnostic (FreeStyle #50 ea 08/05/21 Lite Strips) atorvastatin 40 mg tablet (Lipitor) 40 mg PO DAILY #30 tabs 08/15/21 blood-glucose meter (FreeStyle #1 ea 03/22/22 Lite Meter kit) pioglitazone 15 mg tablet (Actos) 15 mg PO DAILY #30 tabs 03/28/22 semaglutide 0.25 mg or 0.5 mg (2 0.25 mg (0.2 mL) subcut QWEEK 90 04/06/22 mg/1.5 mL) subcutaneous pen days #2.6 mL injector (Ozempic) amoxicillin 875 mg-potassium 1 tab PO BID #14 tabs 05/05/22 clavulanate 125 mg tablet prednisone 20 mg tablet 20 mg PO DAILY 7 days #7 tabs 09/19/22 Allergies Allergy/AdvReac Type Severity Reaction Status Date / Time metformin AdvReac Intermediate elevated Verified 12/13/22 10:40 blood sugar Review of Systems Review of Systems: Constitutional: No fever, chills, fatigue, night sweats, weight changes, +body aches ENT/Mouth: + ear pain, No hearing loss, nasal congestion, sinus pain, rhinorrhea, + sore throat Eyes: No eye pain, swelling, redness, vision changes, discharge Cardio: No chest pain, palpitations, LOPEZ, orthopnea, peripheral edema Pulm: No SOB, +cough, No sputum, wheezing, dyspnea, hemoptysis GI: No nausea, vomiting, hematemesis, abdominal pain, diarrhea, constipation, hematochezia, melena : No irregular bleeding, dysuria, frequency, urgency, hesitancy, hematuria, flank pain, urinary flow changes, urinary incontinence or retention MSK: No back pain, neck pain, joint pain, myalgias Skin: No lesions, rashes Neuro: No weakness, numbness, paresthesias, LOC, dizziness, +headache All other systems reviewed and are negative. [facility] Past Medical History Attestation statement: The following information was validated with the patient. Source: old records reviewed and nursing notes reviewed Medical History Constipation by delayed colonic transit Mixed hyperlipidemia Minimal recurrent major depressive disorder TEREZA (generalized anxiety disorder) Right foot pain Left foot pain Morbid obesity with BMI of 40.0-44.9, adult Diabetes type 2, uncontrolled Surgical History History of endoscopy History of colonoscopy History of tubal ligation History of wisdom tooth extraction Family History Family History Mother Hypertension Diabetes Father Anxiety and depression Sister Hypertension Brother No problems noted. Brother No problems noted. Brother No problems noted. Daughter No problems noted. Son No problems noted. Son No problems noted. Son No problems noted. Social History Social History Housing: Apartment Alcohol intake: current Alcohol intake frequency: holidays/special occasions only Alcohol type: wine Patient Tobacco Use Status: Never used Tobacco e-Cigarette/Vaping Use: Never Used Second Hand Smoke Exposure: No Advance Directives: No Advance Directives Information Provided: No service: No Current occupational status: unemployed Cognitive needs: No Hearing needs: No Vision needs: No Physical Exam Vital Signs: Vital Signs: Last Vital Signs Temp 98.4 F 12/13/22 12:18 Pulse 100 12/13/22 12:18 Resp 20 12/13/22 12:18 BP 132/86 12/13/22 12:18 Pulse Ox 98 12/13/22 12:18 O2 Del Method Room Air 12/13/22 12:18 BMI result Body Mass Index 37.7 VSS Const: General: cooperative, no acute distress, alert and awake Orientation/consciousness: patient oriented x3 Limitations: no limitations HEENT: Other: No pain with manipulation of the pinna b/l. No mastoid tenderness b/l. EAC's midly injected, with mild amount of cerumen b/l. B/l tm's intact without erythema, bulging, or effusion. Posterior oropharynx with mild erythema. No tonsillar exudates. Uvula midline. Talking in complete sentences. Controlling secretions. Head: Yes normal to inspection Ears: hearing grossly normal bilaterally General nose exam: Normal external nose present Face and sinus: Yes sinuses nontender Mouth: tongue normal and no drooling Eyes: General: appearance normal, both eyes and all related structures Conjunctivae: conjunctivae normal Sclerae: sclerae normal Corneas: corneas normal Pupils: Equal, round and reactive pupils present EOM: EOMs intact bilaterally Neck: Neck: Yes normal visual inspection, Yes full ROM, Yes no lymphadenopathy, Yes no meningeal signs, Yes trachea midline and Yes supple Chest: Chest palpation & inspection: normal inspection of the chest Resp: Effort & Inspection: normal respiratory effort Auscultation: clear to auscultation bilaterally, no crackles, no rales, no rhonchi and no wheezes Cardio: Rate: regular rate Rhythm: regular rhythm Heart sounds: S1 normal heart sound present and S2 normal heart sound present Peripheral pulses: Peripheral pulses 2+ throughout GI: Inspection: Yes normal to inspection Palpation (GI): Soft to palpation, nontender and no guarding Skin: General skin exam: no rashes or lesions noted Neuro: General: patient oriented x3, gait normal, moves all extremities, no meningeal signs and no focal motor deficits Cranial nerves: Yes CN's II-XII intact bilaterally and Yes Equal, round and reactive pupils present Extrem: General: Yes normal to inspection and Yes full ROM Course Course Course Narrative: 1210-- patient informed of her negative covid/flu/strep. VSS. Physical exam is benign. Patient's symptoms are consistent with viral syndrome. I explained to the patient that treatment is symptomatic. Dscussed strict return precautions. All questions answered. Patient agreeable with disposition. Will provide work note. Stable for discharge home. Medical Decision Making Medical Decision Making [facility] Narrative: 52 year old female with pmhx significant for T2DM, HDL, TEREZA, and MDD who presents to the ED today with a complaint of headache, body aches, left ear pain, sore throat, and chest discomfort upon coughing x3 days. VSS, afebrile. In no acute distress. Nontoxic appearing. No pain with manipulation of the pinna b/l. No mastoid tenderness b/l. EAC's midly injected, with mild amount of cerumen b/l. B/l tm's intact without erythema, bulging, or effusion. Posterior oropharynx with mild erythema. No tonsillar exudates. Uvula midline. Talking in complete sentences. Controlling secretions. Neuro exam not focal. Lungs CTA bilaterally. Clinical concern for viral syndrome vs migraine FIGUEROA. Unlikely mono. Lower suspicion for otitis externa versus otitis media. Unlikely TM perforation, mastoiditis or malignant otitis externa. Unlikely ICH, meningitis or encephalitis. Presentation not consistent with epiglottitis, COLLEGE RECRUITER, retropharyngeal abscess. Unlikely pneumonia. Unlikely ACS or PE. Plan at this time is to review serology obtained during triage. Labs/ imaging not warranted at this time. Differential Diagnosis Differential Diagnoses: The differential diagnosis associated with the presentation includes As above. Admission/Observation Not indicated Lab Data [facility] Lab Attestation statement: I reviewed the patient's lab results. As above. Labs: Lab Results 12/13/22 Range/Units 10:47 COVID-19 ([facility]) Negative (Negative) COVID-19 Clin Com See Note Influenza Type A ([facility]) Negative (Negative) Influenza Type B ([facility]) Negative (Negative) Influenza A & B Note See Note S. pyogenes GrpA [facility] Negative (Negative) External Record Review External record reviewed: Inpatient record Critical Care Time Critical Care Time Critical Care Time: No Discharge Plan Discharge Clinical Impression: Viral syndrome Patient Disposition: Home, Self-Care Instructions: Viral Syndrome (ED) Additional Instructions: Today you tested negative for COVID-19, influenza, and strep throat. The treatment for this is supportive care. Take Ibuprofen or Tylenol as needed for fevers or body aches.? Practice good hand hygiene. Drink plenty of fluids. Follow-up with your primary care provider this week. Return to the emergency department with new or worsening symptoms. In case of emergency call 911 Hoy collette negativo en pruebas de COVID-19, influenza y faringitis estreptoc?cica. El tratamiento para esto es la atenci?n de apoyo. [place] ibuprofeno o Tylenol seg?n sea necesario para la fiebre o los meme corporales. Practique guille buena higiene de omar. Beber mucho l?quido. Jimena un seguimiento con jaimes proveedor de atenci?n primaria esta semana. Regrese al departamento de emergencias si los s?ntomas son nuevos o empeoran. En renee de emergencia llame al 911. Prescriptions: No Action thiamine HCl (vitamin B1) 100 mg tablet 100 mg PO DAILY Qty: 30 2RF mecobalamin (vitamin B12) 1,000 mcg tablet,disintegrating 1,000 mcg sublingual DAILY Qty: 30 2RF Rx Instructions: place tablet under tongue and allow to dissolve for at least30 secs before swallowing cholecalciferol (vitamin D3) 125 mcg (5,000 unit) capsule 125 mcg PO DAILY Qty: 30 2RF (DME) FreeStyle Lite Strips Strip See Rx Instructions .ROUTE .MEDSUPPLY Qty: 50 5RF Rx Instructions: Twice a day atorvastatin [Lipitor] 40 mg tablet 40 mg PO DAILY Qty: 30 5RF (DME) blood-glucose meter [FreeStyle Lite Meter] Kit See Rx Instructions .Route Qty: 1 0RF Rx Instructions: As directed pioglitazone [Actos] 15 mg tablet 15 mg PO DAILY Qty: 30 4RF Ozempic 0.25 mg or 0.5 mg(2 mg/1.5 mL) pen injector 0.25 mg subcut QWEEK 90 Days Qty: 2.6 3RF Rx Instructions: for 4 doses amoxicillin-pot clavulanate 875-125 mg tablet 1 tab PO BID Qty: 14 0RF prednisone 20 mg tablet 20 mg PO DAILY 7 Days Qty: 7 0RF docusate sodium 250 mg capsule 250 mg PO BEDTIME PRN (Reason: constipation) 30 Days Qty: 30 2RF [place] [facility] [place] Stand Alone Forms: Work/School Release Interventions: ED Discharge Assessment Last Done: 12/13/22 12:23 Discharge Date/Time: 12/13/22 12:23 Print Language: Welsh
[2022-12-13 11:18] LABS: IDNOW Serial# 08D9AD1C; Strep A Nucleic Acid Negative (Negative)
[2022-12-13 11:26] LABS: COVID-19 Test Negative (Negative); IDNOW Serial# 9DB6401D; IDNOW Serial# BCCEAD1C; Influenza A Negative (Negative); Influenza B2 Negative (Negative)
--- OUTSIDE RECORDS SUMMARY | 2022-12-13 11:48 | XMS_ITS | Continuity of Care Document ---
Author Name Unknown Organization [facility] Address [address] [place] [id number] Care Team Providers Care Hotel Assistant Manager Name Role Phone Jam Jim MD, Alice Suggs Primary Care Physician Encounter [facility] [place] Date(s): 06/10/21 - 07/10/21 [facility] [address] [place] [id number] Attending Physician: Anjelica Hyman Admitting Physician: Anjelica Hyman Referring Physician: Anjelica Hyman
[2022-12-13 12:18] VITALS: BP 132/86; PULSE 100; RESP 20; TEMP 36.9; O2SAT 98
--- NOTE | 2022-12-13 12:26 | PC.NURSE ---
takling well w/o respiratory distress. calm, coop. aox4.
== END 2022-12-13 12:23 | disposition home or self-care (01) ==
PROVIDERS: Emergency Provider Emergency Medicine; PCP Internal Medicine
DX: B34.9 Viral infection, unspecified (principal); J02.9 Acute pharyngitis, unspecified; Z11.52 Encounter for screening for COVID-19; E11.9 Type 2 diabetes mellitus without complications; E78.2 Mixed hyperlipidemia; E66.9 Obesity, unspecified; Z68.37 Body mass index [BMI] 37.0-37.9, adult; Z79.899 Other long term (current) drug therapy
CPT/HCPCS: 87502; 87635; 87651; 99283

== ENCOUNTER 2023-04-16 11:23 | Emergency (ER) | payer OTHER, SELFPAY ==
[2023-04-16 11:29] VITALS: BP 150/86; PULSE 76; RESP 16; TEMP 37; O2SAT 95; BMI 38.3
--- NOTE | 2023-04-16 11:32 | ED_ITS ---
HPI - General Adult General Chief complaint: General Medical Stated complaint: Pain left side of face Time Seen by Provider: 04/16/23 13:24 Source: patient and certified court/medical interpreter Mode of arrival: ambulatory Limitations: no limitations History of Present Illness HPI narrative: 52-year-old female with pmhx significant for T2DM, HDL, TEREZA, MDD presents to the ED today from home for evaluation of headache, left-sided facial pain, left ear pain, and nonproductive cough x3 days. Patient reports headache for 3 days however began to feel pain along the left side of her face today, prompting her to come in for evaluation. Endorses left ear pain. Denies ringing, drainage, or hearing loss. She has been taking DayQuil, ibuprofen and Tylenol for symptoms without resolution. Has not taken any OTC medications today. Denies fever, chills, sore throat, sputum production, chest pain, lower extremity pain or swelling. Denies recent travel or long car rides. Denies known sick contacts. A automotive parts interpreter was utilized to communicate with patient during visit. Related Data Previous Rx's Medication Instructions Recorded blood sugar diagnostic (FreeStyle #50 ea 08/05/21 Lite Strips) atorvastatin 40 mg tablet (Lipitor) 40 mg PO DAILY #30 tabs 08/15/21 blood-glucose meter (FreeStyle #1 ea 03/22/22 Lite Meter kit) azithromycin 250 mg tablet See Rx Instructions PO .COMPLEX #6 04/18/23 tabs meloxicam 15 mg tablet 15 mg PO DAILY #14 tabs 04/18/23 Allergies Allergy/AdvReac Type Severity Reaction Status Date / Time metformin AdvReac Intermediate elevated Verified 04/18/23 12:02 blood sugar Review of Systems Review of Systems: Constitutional: No fever, chills, fatigue, night sweats, weight changes ENT/Mouth: No ear pain, hearing loss, nasal congestion, sinus pain, rhinorrhea, sore throat, +left facial pain Eyes: No eye pain, swelling, redness, vision changes, discharge Cardio: No chest pain, palpitations, LOPEZ, orthopnea, peripheral edema Pulm: No SOB, +cough, No sputum, wheezing, dyspnea, hemoptysis GI: No nausea, vomiting, hematemesis, abdominal pain, diarrhea, constipation, hematochezia, melena : No irregular bleeding, dysuria, frequency, urgency, hesitancy, hematuria, flank pain, urinary flow changes, urinary incontinence or retention MSK: No back pain, neck pain, joint pain, myalgias Skin: No lesions, rashes Neuro: No weakness, numbness, paresthesias, LOC, dizziness, +headache All other systems reviewed and are negative. [facility] Past Medical History Attestation statement: The following information was validated with the patient. Source: old records reviewed and nursing notes reviewed Medical History Constipation by delayed colonic transit Mixed hyperlipidemia Minimal recurrent major depressive disorder TEREZA (generalized anxiety disorder) Right foot pain Left foot pain Morbid obesity with BMI of 40.0-44.9, adult Diabetes type 2, uncontrolled Surgical History History of endoscopy History of colonoscopy History of tubal ligation History of wisdom tooth extraction Family History Family History Mother Hypertension Diabetes Father Anxiety and depression Sister Hypertension Brother No problems noted. Brother No problems noted. Brother No problems noted. Daughter No problems noted. Son No problems noted. Son No problems noted. Son No problems noted. Social History Social History Housing: Apartment Alcohol intake: current Alcohol intake frequency: does not drink Alcohol type: wine Patient Tobacco Use Status: Never used Tobacco e-Cigarette/Vaping Use: Never Used Second Hand Smoke Exposure: No service: No Current occupational status: unemployed Cognitive needs: No Hearing needs: No Vision needs: No Physical Exam ED Vital Signs: Vital Signs - 24 hr 04/16/23 11:29 Temperature 98.6 F Pulse Rate 76 Respiratory Rate 16 Blood Pressure 150/86 H Pulse Oximetry 95 Oxygen Delivery Method Room Air BMI result Body Mass Index 38.3 Patient hypertensive to 150/86, vitals otherwise WNL. Const General: cooperative, healthy appearing, comfortable and no acute distress Nutritional Appearance: overweight Orientation/consciousness: patient oriented x3 Limitations: no limitations HENMT Other: + No facial edema. Tongue and lips wnl + no tenderness to palpation over maxillary or frontal sinuses. No tenderness along bilateral distribution of facial nerve. No scalp tenderness. No palpable temporal artery. + fair dentition + No edema to buccal mucosa + Posterior oropharynx without erythema/edema. Uvula midline. Controlling secretions and speaking in complete sentences + No submandublar or submental LAD + No cervical LAD Head: Yes normal to inspection, Yes normocephalic and Yes atraumatic Ears: hearing grossly normal bilaterally, external ears normal, TM's normal bilaterally, EAC's normal, mastoids normal and no periauricular adenopathy General nose exam: No nasal discharge present Face and sinus: Yes normal facial exam and Yes sinuses nontender Eyes General: appearance normal, both eyes and all related structures Conjunctivae: conjunctivae normal Sclerae: sclerae normal Pupils: Equal, round and reactive pupils present EOM: EOMs intact bilaterally Neck Neck: Yes normal visual inspection, Yes full ROM and Yes no lymphadenopathy Resp Effort & Inspection: normal respiratory effort Auscultation: clear to auscultation bilaterally Cardio Rate: regular rate Rhythm: regular rhythm Skin General skin exam: no rashes or lesions noted Neuro General: patient oriented x3, gait normal and no focal motor deficits Cranial nerves: Yes Equal, round and reactive pupils present Extrem General: Yes normal to inspection Course Course Course Narrative: RME: 52-year-old female presents to ED for cough, runny nose, left-sided facial pain, ear pain, for couple of days. Patient denies any chest pain, shortness of breath, neck pain, slurred speech, facial droop, or paralysis of extremities. Reevaluation(s) Reevaluation #1: 1400-- negative for covid and influenza. will attempt pain control for suspected migraine and re-evaluate. Patient is lying comfortably on the exam bed talking on her cellphone. 1540-- On re-evaluation, patient tells me she feels much better after receiving reglan/benadryl/toradol. I informed her of unremarkable work up results. Will send patient home with suzanne and sid with PCP follow up. Patient has remained stable throughout ED visit today. Discussed worrisome signs and symptoms and when to return to the ED. All questions answered at this time. Patient is agreeable with disposition and stable for discharge. Medications Administered Discontinued Medications Generic Name Dose Route Start Last Admin Trade Name Freq PRN Reason Stop Dose Admin Diphenhydramine HCl 50 mg 04/16/23 13:37 04/16/23 14:03 Diphenhydramine Hcl 25 Mg Capsule PO 04/16/23 13:38 50 mg ONCE ONE Administration Ketorolac Tromethamine 30 mg 04/16/23 13:37 04/16/23 14:03 Ketorolac Tromethamine 30 Mg/Ml Vial IM 04/16/23 13:38 30 mg ONCE ONE Administration Metoclopramide HCl 10 mg 04/16/23 13:37 04/16/23 14:03 Metoclopramide Hcl 10 Mg Tablet PO 04/16/23 13:38 10 mg ONCE ONE Administration Medical Decision Making Medical Decision Making MDM Narrative: 52-year-old female with pmhx significant for T2DM, HDL, TEREZA, MDD presents to the ED today from home for evaluation of headache, left-sided facial pain, left ear pain, and nonproductive cough x3 days. Patient hypertensive to 150/86, vitals otherwise WNL. Patient is nontoxic-appearing and in no acute distress. Bilateral EACs and TMs WNL. No mastoid tenderness bilaterally. No pain on manipulation of bilateral ears. No palpable temporal artery or scalp tenderness. Clinical concern for viral syndrome, bronchitis. Lower suspicion for pneumonia, sinusitis, otitis media or externa. Unlikely mastoiditis, malignant otitis externa, giant cell arteritis, trigeminal neuralgia, ICH, CVA/ TIA, CONSTRUCTION FOREMAN, retroph aryngeal abscess, epiglottitis. Plan for COVID/flu/strep swabs, pain control, and re-evaluation. Differential Diagnosis Differential Diagnoses: The differential diagnosis associated with the presentation includes As above. Admission/Observation Not indicated. Lab Data [facility] Lab Attestation statement: I reviewed the patient's lab results. As above. Labs: Lab Results 04/16/23 04/16/23 Range/Units 12:19 12:20 COVID-19 ([facility]) Negative (Negative) COVID-19 Clin Com See Note Influenza Type A ([facility]) Negative (Negative) Influenza Type B ([facility]) Negative (Negative) Influenza A & B Note See Note S. pyogenes GrpA [facility] Negative (Negative) External Record Review External record reviewed: Inpatient record Prescription Management I considered prescription management with: Pain Medication and Other (Antiemetic) Chronic Conditions Patient?s care impacted by: Diabetes Social Determinants Patient?s care significantly limited by Social Determinants of Health including: Other Social Determinant of Health Discharge Plan Discharge Clinical Impression: Headache Patient Disposition: Home, Self-Care Instructions: General Headache (ED) Additional Instructions: You tested negative today for covid, flu, and strep throat. Your symptoms improved with medications today. Zofran is an antiemetic that has been sent to [facility] pharmacy. Take this as needed for nausea. Fioricet has been sent to your pharmacy. Take this as needed for headaches. Do not use more than 2-3 days as it can cause rebound headaches. STOP TAKING THE PENICILLIN. This will not improve your symptoms and can cause resistance to the antibiotic. If symptoms persist, please follow up with either your PCP or a neurologist. A referral to a neurologist has been provided to you. You may call them to make an appointment. They will not call you. If symptoms worse, please return to the ED. In the case of emergency, please call 911. Prescriptions: No Action (DME) FreeStyle Lite Strips Strip See Rx Instructions .ROUTE .MEDSUPPLY Qty: 50 5RF Rx Instructions: Twice a day atorvastatin [Lipitor] 40 mg tablet 40 mg PO DAILY Qty: 30 5RF (DME) blood-glucose meter [FreeStyle Lite Meter] Kit See Rx Instructions .Route Qty: 1 0RF Rx Instructions: As directed azithromycin 250 mg tablet See Rx Instructions PO .COMPLEX Qty: 6 0RF Rx Instructions: take 500 mg today (day 1), then 250 mg for 4 days (days 2-5) PO meloxicam 15 mg tablet 15 mg PO DAILY Qty: 14 0RF [place] [facility] [place] Group] Alice Friedman MD [Primary Care Provider] - Interventions: ED Discharge Assessment Last Done: 04/16/23 16:00 Discharge Date/Time: 04/16/23 16:00
[2023-04-16 12:48] LABS: COVID-19 Test Negative (Negative); IDNOW Serial# 08D9AD1C
[2023-04-16 12:48] LABS: IDNOW Serial# 58CA691E; Strep A Nucleic Acid Negative (Negative)
[2023-04-16 12:53] LABS: IDNOW Serial# 152EDE1D; Influenza A Negative (Negative); Influenza B2 Negative (Negative)
[2023-04-16] MEDS: diphenhydrAMINE HCL 25 MG CAPSULE 50 MG PO (14:03)
[2023-04-16] MEDS: Metoclopramide HCl 10 MG TABLET PO (14:03)
[2023-04-16] MEDS: Ketorolac Tromethamine 30 MG/ML VIAL IM (14:03)
== END 2023-04-16 16:00 | disposition home or self-care (01) ==
PROVIDERS: Physician Assistant; Emergency Provider Student in an Organized Health Care Education/Training Program; PCP Internal Medicine
DX: R51.9 Headache, unspecified (principal); H92.02 Otalgia, left ear; R05.9 Cough, unspecified; Z11.52 Encounter for screening for COVID-19
CPT/HCPCS: 87502; 87635; 87651; 96372; 99284; J1885

== ENCOUNTER 2023-04-18 10:36 | Outpatient (AMB) | payer OTHER, SELFPAY ==
--- NOTE | 2023-04-18 11:38 | AM.OFFWIN_ITS ---
Intake Vital Signs 04/18/23 11:46 Height 5 ft Weight 196 lb BMI 38.3 BP 150/80 H Blood Pressure Location Lt brachial Position Sitting Pulse 75 Pulse Source Pulse Oximeter Temp 97.9 F Temp Source Temporal Artery Scan Pulse Oximetry (%) 96 Intake Visit Reasons: EST/left side head pain (lobby) Intake Note: pt is here today for lft side head pain started 1 week ago Patient Tobacco Use Status: Never used Tobacco Allergies metformin Adverse Reaction (Intermediate, Verified 04/18/23 12:02) elevated blood sugar Medication List - Last Reconciled 04/18/23 by Demar Garcia MD atorvastatin (Lipitor) 40 mg PO DAILY blood sugar diagnostic (FreeStyle Lite Strips) Twice a day blood-glucose meter (FreeStyle Lite Meter kit) As directed Do you need a note to return to daycare/school/sports/work: No HPI EST/left side head pain (lobby) HPI Details Patient presents for a sick visit. Reporting symptoms of sinus congestion, sore throat and difficulty swallowing. Low-grade fever. No family member is sick. No recent travel. Patient reports symptoms of malaise and fatigue. [facility] [place] Medical History Constipation by delayed colonic transit Mixed hyperlipidemia Minimal recurrent major depressive disorder TEREZA (generalized anxiety disorder) Right foot pain Left foot pain Morbid obesity with BMI of 40.0-44.9, adult Diabetes type 2, uncontrolled Surgical History History of endoscopy History of colonoscopy History of tubal ligation History of wisdom tooth extraction Family History Mother Hypertension Diabetes Father Anxiety and depression Sister Hypertension Brother No problems noted. Brother No problems noted. Brother No problems noted. Daughter No problems noted. Son No problems noted. Son No problems noted. Son No problems noted. Social History Housing: Apartment Alcohol intake: current Alcohol intake frequency: does not drink Alcohol type: wine Patient Tobacco Use Status: Never used Tobacco e-Cigarette/Vaping Use: Never Used Second Hand Smoke Exposure: No service: No Current occupational status: unemployed Cognitive needs: No Hearing needs: No Vision needs: No Physical Exam Vital Signs: Last Vital Signs Temp 97.9 F 04/18/23 11:46 Pulse 75 04/18/23 11:46 BP 150/80 H 04/18/23 11:46 Pulse Ox 96 04/18/23 11:46 BMI result Body Mass Index 38.3 Const General: cooperative and healthy appearing Nutritional Appearance: well nourished Orientation/consciousness: patient oriented x3 Limitations: no limitations HEENT Head: Yes normal to inspection Eyes General: appearance normal, both eyes and all related structures Neck Neck: Yes normal visual inspection Chest Chest palpation & inspection: normal palpation of entire chest wall Resp Effort & Inspection: normal respiratory effort Neuro General: patient oriented x3 Assessment & Plan Assessment & Plan (1) Acute sinusitis: Code(s): J01.90 - Acute sinusitis, unspecified Plan: Antibiotics ordered. Increase fluid intake. Tylenol for aches and pains. If symptoms worsen, follow-up here for a recheck. Coding Level of Care Code Est Pt Level 3 (55111) Diagnoses Acute sinusitis J01.90
[2023-04-18 11:46] VITALS: BP 150/80; PULSE 75; TEMP 36.6; O2SAT 96; BMI 38.3
== END 2023-04-18 12:26 | disposition home or self-care (01) ==
PROVIDERS: PCP Internal Medicine; Visit Provider Internal Medicine
DX: J01.90 Acute sinusitis, unspecified (principal)
CPT/HCPCS: 99213

== ENCOUNTER 2023-10-06 10:48 | Outpatient (AMB) | payer OTHER, SELFPAY ==
[2023-10-06 10:58] VITALS: BP 136/84; RESP 14; BMI 39.3
--- NOTE | 2023-10-06 10:58 | MHC.OFFVIS ---
Vital Signs 10/06/23 10:58 Height 5 ft Weight 201 lb 8.04 oz BMI 39.3 BP 136/84 Blood Pressure Location Rt brachial Position Sitting Respiration 14 Intake Visit Reasons: T2DM/CONFIRMED Intake Note: Patient presents today to follow up on D2MT. Last Diabetic Eye exam: Over 2 years Last Podiatry Visit:Doesn't have one. Random Glucose:248 mg/dl HgA1c: 8.0% Tour Sales Representative Required: No Accompanied by: Self / Same As Patient Allergies metformin Adverse Reaction (Intermediate, Verified 10/06/23 11:07) elevated blood sugar Medication List - Last Reconciled 10/06/23 by Tiffanie Santos PA-C atorvastatin (Lipitor) 40 mg PO DAILY azithromycin take 500 mg today (day 1), then 250 mg for 4 days (days 2-5) PO blood sugar diagnostic (FreeStyle Lite Strips) Twice a day blood-glucose meter (FreeStyle Lite Meter kit) As directed lancets (FreeStyle Lancets) use daily as directed to check blood glucose meloxicam 15 mg PO DAILY tirzepatide (Mounjaro) 2.5 mg (0.5 mL) subcut QWEEK 4 weeks HPI HPI T2DM/CONFIRMED: Details: The patient is a 53-year-old female with a significant past medical history of obesity, anxiety, depression, type 2 diabetes and hyperlipidemia presenting today for a follow-up regarding her diabetes.. She last saw Dr. Del Rio couple years ago. Endo: Her A1c today 8. She is on Ozempic 0.25 mg weekly. She states that she tolerates this well but does not notice that it is that effective in terms of weight loss. She 1 time tried her mother's [place] and that did not cause any adverse effects and she wants to try this medication. She does not check her blood sugars much at home because she ran out of testing supplies. She is supposed to be on atorvastatin 40 mg for her cholesterol but states that she has not had a refill on this in a couple years. CV: Blood pressure today in the office is 138/82. She denies any known history of hypertension but her last blood pressure at our last visit was high. She is not on an MOOK-inhibitor. [facility] Medical History Constipation by delayed colonic transit Mixed hyperlipidemia Minimal recurrent major depressive disorder TEREZA (generalized anxiety disorder) Right foot pain Left foot pain Morbid obesity with BMI of 40.0-44.9, adult Diabetes type 2, uncontrolled Surgical History History of endoscopy History of colonoscopy History of tubal ligation History of wisdom tooth extraction Family History Mother Hypertension Diabetes Father Anxiety and depression Sister Hypertension Brother No problems noted. Brother No problems noted. Brother No problems noted. Daughter No problems noted. Son No problems noted. Son No problems noted. Son No problems noted. Social History Housing: Apartment Alcohol intake: current Alcohol intake frequency: does not drink Alcohol type: wine Patient Tobacco Use Status: Never used Tobacco e-Cigarette/Vaping Use: Never Used Second Hand Smoke Exposure: No service: No Current occupational status: unemployed Cognitive needs: No Hearing needs: No Vision needs: No Physical Exam Vital Signs: Last Vital Signs Resp 914 H 10/06/23 10:58 BP 136/84 10/06/23 10:58 BMI result Body Mass Index 39.3 Const Orientation/consciousness: patient oriented x3 Neck Neck: Yes no lymphadenopathy Thyroid: Thyroid normal Carotids: no bruits Resp Auscultation: clear to auscultation bilaterally Cardio Rate: regular rate Rhythm: regular rhythm Heart sounds: S1 normal heart sound present and S2 normal heart sound present Peripheral pulses: dorsalis pedis present Neuro General: patient oriented x3, gait normal and no focal motor deficits Extrem Other: Monofilament sensation intact bilaterally. Vibratory sensation intact bilaterally. Skin intact. General: Yes normal to inspection Results AMB Hemoglobin A1c AMB Hemoglobin A1c 8.0 % Last Edit by BRANDON Ortiz on 10/06/23 11:16 Results Reviewed Results Reviewed: Laboratory Last Values Glucose (Clinic) 248 mg/dL (60-115) H 10/06/23 11:05 Hgb A1c (Clinic) 8.0 % (4.0-6.0) H 10/06/23 11:15 Laboratory Tests 08/06/21 09/19/22 13:32 13:11 Sodium 137 Potassium 4.7 Chloride 106 Carbon Dioxide 21 L Anion Gap 15 BUN 12 Creatinine 0.78 Estim Creat Clear Calc 75.8 Estimated GFR > 60 Random Glucose 222 H Hgb A1c (Clinic) 8.2 H AST 15 ALT 23 Assessment & Plan Assessment & Plan (1) Uncontrolled type 2 diabetes mellitus with hyperglycemia: Code(s): E11.65 - Type 2 diabetes mellitus with hyperglycemia Category: Medical Plan: Will switch to mounjaro. Discussed risks and benefits and adverse effects of this medication including nausea, vomiting, diarrhea, constipation, pancreatitis. Overdue for labs. Order today. Return in 1 month for re-evaluation. (2) Mixed hyperlipidemia: Code(s): E78.2 - Mixed hyperlipidemia Category: Medical Plan: Overdue for lipids. Has not been on atorvastatin for 2 years. Did discuss that if her cholesterol is elevated we will restart her Lipitor. (3) Morbid obesity with BMI of 40.0-44.9, adult: Code(s): E66.01 - Morbid (severe) obesity due to excess calories; Z68.41 - Body mass index [BMI] 40.0-44.9, adult Category: Medical Plan: We will treat with mounjaro. Discussed diet and lifestyle modifications that she will need to make. Orders: Orders Lipid Panel Today E11.65 - Type 2 diabetes mellitus with hyperglycemia, E66.01 - Morbid (severe) obesity due to excess calories, E78.2 - Mixed hyperlipidemia, Z68.41 - Body mass index [BMI] 40.0-44.9, adult Microalbumin, Random (w Creat) Today E11.65 - Type 2 diabetes mellitus with hyperglycemia, E66.01 - Morbid (severe) obesity due to excess calories, E78.2 - Mixed hyperlipidemia, Z68.41 - Body mass index [BMI] 40.0-44.9, adult Thyroid Stimulating Hormone Today E11.65 - Type 2 diabetes mellitus with hyperglycemia, E66.01 - Morbid (severe) obesity due to excess calories, E78.2 - Mixed hyperlipidemia, Z68.41 - Body mass index [BMI] 40.0-44.9, adult AMB Hemoglobin A1c Today E11.65 - Type 2 diabetes mellitus with hyperglycemia, Z13.9 - Encounter for screening, unspecified Complete Blood Count Auto Diff Today E11.42 - Type 2 diabetes mellitus with diabetic polyneuropathy, E11.65 - Type 2 diabetes mellitus with hyperglycemia, E66.01 - Morbid (severe) obesity due to excess calories, E78.2 - Mixed hyperlipidemia, Z68.41 - Body mass index [BMI] 40.0-44.9, adult Comprehensive [place]. Panel Fast Today E11.65 - Type 2 diabetes mellitus with hyperglycemia, E66.01 - Morbid (severe) obesity due to excess calories, E78.2 - Mixed hyperlipidemia, Z68.41 - Body mass index [BMI] 40.0-44.9, adult Medications: New lancets (FreeStyle Lancets) use daily as directed to check blood glucose 100 ea 3RF tirzepatide (Mounjaro) 2.5 mg (0.5 mL) subcut QWEEK 4 weeks 2 mL 1RF Discontinued semaglutide (Ozempic) for 4 weeks Discontinued Reason: Doctor's Order 0.25 mg (0.368 mL) subcut QWEEK 28 days 1.472 mL 0RF E11.65 - Type 2 diabetes mellitus with hyperglycemia Coding Level of Care Code Est Pt Level 4 (90434) Complex EM visit Add On G2211 Diagnoses Uncontrolled type 2 diabetes mellitus with hyperglycemia E11.65 Mixed hyperlipidemia E78.2 Morbid obesity with BMI of 40.0-44.9, adult E66.01; Z68.41
[2023-10-06 11:11] LABS: Glucose, Whole Blood 248 mg/dL (60-115)
== END 2023-10-06 11:53 | disposition home or self-care (01) ==
PROVIDERS: PCP Internal Medicine; Visit Provider Physician Assistant
DX: E11.65 Type 2 diabetes mellitus with hyperglycemia (principal); E78.2 Mixed hyperlipidemia; E66.01 Morbid (severe) obesity due to excess calories; Z68.41 Body mass index [BMI] 40.0-44.9, adult; Z13.9 Encounter for screening, unspecified
CPT/HCPCS: 99214; G2211

== ENCOUNTER → 2023-10-06 10:48 | Outpatient (BNVA) | payer OTHER, SELFPAY | PROVIDERS: PCP Internal Medicine; Visit Provider Physician Assistant | DX: E11.65 Type 2 diabetes mellitus with hyperglycemia (principal); E78.2 Mixed hyperlipidemia; E66.01 Morbid (severe) obesity due to excess calories; Z68.39 Body mass index [BMI] 39.0-39.9, adult | CPT/HCPCS: 82947; 83036; 99212 ==

== ENCOUNTER 2023-10-16 09:48 | Outpatient (REF) | payer OTHER, SELFPAY ==
[2023-10-16 10:06] LABS: MANUAL DIFF FLAG NO
[2023-10-16 10:52] LABS: Basophils Percent Auto 0.7 % (0-2); Eosinophils Absolute Auto 0.1 X10*3/uL (0.0-0.4); Eosinophils Percent Auto 2.1 % (0-4); Hematocrit 38.8 % (37.0-47.0); Hemoglobin 13.4 g/dl (12.0-16.0); Imm Gran Abs Auto 0.03 X10*3/uL (0.00-0.03); Imm Gran Pct Auto 0.5 % (0.0-0.4); Lymphocytes Percent Auto 34.5 % (20-40); Mean Corpuscular HGB Conc 34.5 g/dl (31.0-35.0); Mean Corpuscular Hemoglobin 30.2 pg (27.0-33.0); Mean Corpuscular Volume 87.6 fL (80.0-98.0); Monocytes Absolute Auto 0.4 X10*3/uL (0.1-1.2); Monocytes Percent Auto 7.1 % (2-11); Neutrophils Absolute Auto 3.2 x10*3/uL (2.0-8.3); Neutrophils Percent Auto 55.1 % (45-73); Platelet Count 242 X10*3/uL (160-400); Red Blood Count 4.43 X10*6/uL (4.20-5.50); Red Cell Distribution Width 11.6 % (11.0-16.0); White Blood Count 5.8 X10*3/uL (4.8-10.8)
[2023-10-16 11:33] LABS: Alanine Aminotransferase 36 U/L (0-31); Albumin Level 4.4 g/dL (3.5-5.0); Alkaline Phosphatase 59 U/L (39-117); Anion Gap 12 (12-20); Aspartate Amino Transferase 21 U/L (5-31); Bilirubin Total 0.5 mg/dL (0.0-1.0); Blood Urea Nitrogen 13 mg/dL (9-16); Calcium 9.7 mg/dL (8.4-10.2); Carbon Dioxide 26 mmol/L (22-29); Chloride 104 mmol/L (96-108); Cholesterol 257 mg/dL (<200); Estimated Glomerular Filt Rate > 60; Glucose Fasting 171 mg/dL (60-99); HDL Cholesterol 47 mg/dL (>40); LDL Cholesterol Calculated 173 mg/dL (<100); Potassium 4.4 mmol/L (3.3-5.1); Sodium 138 mmol/L (135-145); Total Protein 7.3 g/dL (6.5-8.0); Triglycerides 189 mg/dL (<150)
[2023-10-16 11:39] LABS: Thyroid Stimulating Hormone 1.11 uIU/mL (0.32-4.0)
[2023-10-16 12:15] LABS: Creatinine Urine 213.29 mg/dL; Microalbum/Creatinine Ratio Ur 14.5 ug/mg cr (<30)
== END 2023-10-16 09:49 | disposition home or self-care (01) ==
LOC: HO.LAB 09:48
PROVIDERS: PCP Internal Medicine; Visit Provider Physician Assistant
DX: E11.65 Type 2 diabetes mellitus with hyperglycemia (principal); E78.2 Mixed hyperlipidemia; E66.01 Morbid (severe) obesity due to excess calories; Z68.41 Body mass index [BMI] 40.0-44.9, adult; E11.42 Type 2 diabetes mellitus with diabetic polyneuropathy
CPT/HCPCS: 36415; 80053; 80061; 82043; 82570; 84443; 85025

== ENCOUNTER 2023-11-03 10:56 | Outpatient (AMB) | payer OTHER, SELFPAY ==
[2023-11-03 11:25] VITALS: BP 122/76; PULSE 72; BMI 38.0
--- NOTE | 2023-11-03 11:25 | MHC.OFFVIS ---
Vital Signs 11/03/23 11:25 Height 5 ft Weight 194 lb 7.163 oz BMI 38.0 BP 122/76 Blood Pressure Location Lt brachial Position Sitting Pulse 72 Pulse Source Pulse Oximeter Intake Visit Reasons: T2DM Intake Note: Patient presents today for D2MT follow up visit. Last Diabetic Eye exam: 2022- Has upcoming appt for January. Last Podiatry Visit: Doesn't have one Random Glucose: 112 mg/dl HgA1c: 8.0% 10/06/23 Sourcing Coordinator Required: No Accompanied by: Mother Allergies metformin Adverse Reaction (Intermediate, Verified 11/03/23 11:28) elevated blood sugar Medication List - Last Reconciled 11/03/23 by Tiffanie Santos PA-C atorvastatin 10 mg PO BEDTIME azithromycin take 500 mg today (day 1), then 250 mg for 4 days (days 2-5) PO blood sugar diagnostic (FreeStyle Lite Strips) Twice a day blood-glucose meter (FreeStyle Lite Meter kit) As directed lancets (FreeStyle Lancets) use daily as directed to check blood glucose meloxicam 15 mg PO DAILY tirzepatide (Mounjaro) 2.5 mg (0.5 mL) subcut QWEEK 4 weeks HPI HPI T2DM: Details: Patient is a 53-year-old female with a significant past medical history of type 2 diabetes and hyperlipidemia presenting today for a follow-up. Dm: Recently seen to reestablish care with her diabetes and was started on Mounjaro 2.5 mg. States that she is tolerating this. She states that she was waiting for the approval from her pharmacy so in the in term was using her mother's left over prescription that she did not take at 2.5 mg. Her last A1c was 8. She has lost 10 lb according to her scale home with the medication and diet changes. -Did not tolerate metformin in the past -we did check labs in her cholesterol was noted to be elevated. In the past she was on atorvastatin so I restarted this as she had not been on it for a couple years. Denies any myalgias. CV: BP today in the office is 122/76 At her last visit was 136/84. [facility] Medical History Constipation by delayed colonic transit Mixed hyperlipidemia Minimal recurrent major depressive disorder TEREZA (generalized anxiety disorder) Right foot pain Left foot pain Morbid obesity with BMI of 40.0-44.9, adult Diabetes type 2, uncontrolled Surgical History History of endoscopy History of colonoscopy History of tubal ligation History of wisdom tooth extraction Family History Mother Hypertension Diabetes Father Anxiety and depression Sister Hypertension Brother No problems noted. Brother No problems noted. Brother No problems noted. Daughter No problems noted. Son No problems noted. Son No problems noted. Son No problems noted. Social History Housing: Apartment Alcohol intake: current Alcohol intake frequency: does not drink Alcohol type: wine Patient Tobacco Use Status: Never used Tobacco e-Cigarette/Vaping Use: Never Used Second Hand Smoke Exposure: No service: No Current occupational status: unemployed Cognitive needs: No Hearing needs: No Vision needs: No Physical Exam Vital Signs: Last Vital Signs Pulse 72 11/03/23 11:25 BP 122/76 11/03/23 11:25 BMI result Body Mass Index 38.0 Const Orientation/consciousness: patient oriented x3 Neck Neck: Yes no lymphadenopathy Thyroid: Thyroid normal Carotids: no bruits Resp Auscultation: clear to auscultation bilaterally Cardio Rate: regular rate Rhythm: regular rhythm Heart sounds: S1 normal heart sound present and S2 normal heart sound present Peripheral pulses: dorsalis pedis present Neuro General: patient oriented x3, gait normal and no focal motor deficits Extrem Other: Monofilament sensation intact bilaterally. Vibratory sensation intact bilaterally. Skin intact. General: Yes normal to inspection Results Reviewed Results Reviewed: Laboratory Tests 10/06/23 10/16/23 11:15 10:04 WBC 5.8 RBC 4.43 Hgb 13.4 Hct 38.8 Plt Count 242 D Sodium 138 Potassium 4.4 Chloride 104 Carbon Dioxide 26 Anion Gap 12 BUN 13 Creatinine 0.82 Estimated GFR > 60 Fasting Glucose 171 H Hgb A1c (Clinic) 8.0 H AST 21 ALT 36 H Alkaline Phosphatase 59 Total Protein 7.3 Albumin 4.4 Triglycerides 189 H Cholesterol 257 H LDL Cholesterol, Calc 173 H HDL Cholesterol 47 Assessment & Plan Assessment & Plan (1) Mixed hyperlipidemia: Code(s): E78.2 - Mixed hyperlipidemia Category: Medical Plan: tolerating lipitor. no myalgias, repeat labs in 3 months. continue with diet (2) Uncontrolled type 2 diabetes mellitus with hyperglycemia: Code(s): E11.65 - Type 2 diabetes mellitus with hyperglycemia Category: Medical Plan: increase mounjaro to 5 mg weekly. tolerating the current dose. follow up 3 months. labs prior. (3) Morbid obesity with BMI of 40.0-44.9, adult: Code(s): E66.01 - Morbid (severe) obesity due to excess calories; Z68.41 - Body mass index [BMI] 40.0-44.9, adult Category: Medical Plan: She has lost 10 lbs (at home) with diet and mounjaro. congratulated on success. Orders: Orders Hemoglobin A1c Today E11.65 - Type 2 diabetes mellitus with hyperglycemia, E66.01 - Morbid (severe) obesity due to excess calories, E78.2 - Mixed hyperlipidemia, Z68.41 - Body mass index [BMI] 40.0-44.9, adult Lipid Panel Today E11.65 - Type 2 diabetes mellitus with hyperglycemia, E66.01 - Morbid (severe) obesity due to excess calories, E78.2 - Mixed hyperlipidemia, Z68.41 - Body mass index [BMI] 40.0-44.9, adult Comprehensive [place]. Panel Fast Today E11.65 - Type 2 diabetes mellitus with hyperglycemia, E66.01 - Morbid (severe) obesity due to excess calories, E78.2 - Mixed hyperlipidemia, Z68.41 - Body mass index [BMI] 40.0-44.9, adult Medications: New tirzepatide (Mounjaro) 5 mg (0.5 mL) subcut QWEEK 2 mL 3RF Discontinued tirzepatide (Mounjaro) Discontinued Reason: Doctor's Order 2.5 mg (0.5 mL) subcut QWEEK 4 weeks 2 mL 1RF Coding Level of Care Code Est Pt Level 4 (58926) Complex EM visit Add On G2211 Diagnoses Mixed hyperlipidemia E78.2 Uncontrolled type 2 diabetes mellitus with hyperglycemia E11.65 Morbid obesity with BMI of 40.0-44.9, adult E66.01; Z68.41
[2023-11-03 11:35] LABS: Glucose, Whole Blood 112 mg/dL (60-115)
== END 2023-11-03 11:50 | disposition home or self-care (01) ==
PROVIDERS: PCP Internal Medicine; Visit Provider Physician Assistant
DX: E78.2 Mixed hyperlipidemia (principal); E11.65 Type 2 diabetes mellitus with hyperglycemia; E66.01 Morbid (severe) obesity due to excess calories; Z68.41 Body mass index [BMI] 40.0-44.9, adult
CPT/HCPCS: 99214; G2211

== ENCOUNTER → 2023-11-03 10:56 | Outpatient (BNVA) | payer OTHER, SELFPAY | PROVIDERS: PCP Internal Medicine; Visit Provider Physician Assistant | DX: E11.65 Type 2 diabetes mellitus with hyperglycemia (principal); E78.2 Mixed hyperlipidemia; E66.01 Morbid (severe) obesity due to excess calories; Z68.41 Body mass index [BMI] 40.0-44.9, adult | CPT/HCPCS: 82947; 99212 ==

== ENCOUNTER 2023-12-26 08:04 | Outpatient (AMB) | payer OTHER, SELFPAY ==
[2023-12-26 08:06] VITALS: BP 124/70; PULSE 74; O2SAT 98
--- NOTE | 2023-12-26 08:06 | MHC.OFFWIV ---
Intake Vital Signs 12/26/23 08:06 Weight 184 lb BP 124/70 Blood Pressure Location Rt brachial Position Sitting Pulse 74 Pulse Source Pulse Oximeter Pulse Oximetry (%) 98 Oxygen Delivery Method Room Air Intake Visit Reasons: EP- rt ear pain Intake Note: Patient here for right ear pain that has been present for about 2 days. Patient Tobacco Use Status: Never used Tobacco Allergies metformin Adverse Reaction (Intermediate, Verified 12/26/23 08:12) elevated blood sugar Do you need a note to return to daycare/school/sports/work: Yes [facility] Medical History (Updated 12/26/23 @ 08:24 by Mini Dobson PA-C) Constipation by delayed colonic transit Mixed hyperlipidemia Minimal recurrent major depressive disorder TEREZA (generalized anxiety disorder) Right foot pain Left foot pain Morbid obesity with BMI of 40.0-44.9, adult Surgical History History of endoscopy History of colonoscopy History of tubal ligation History of wisdom tooth extraction Family History Mother Hypertension Diabetes Father Anxiety and depression Sister Hypertension Brother No problems noted. Brother No problems noted. Brother No problems noted. Daughter No problems noted. Son No problems noted. Son No problems noted. Son No problems noted. Social History Housing: Apartment Alcohol intake: current Alcohol intake frequency: does not drink Alcohol type: wine Patient Tobacco Use Status: Never used Tobacco e-Cigarette/Vaping Use: Never Used Second Hand Smoke Exposure: No service: No Current occupational status: unemployed Cognitive needs: No Hearing needs: No Vision needs: No Review of Systems Const All systems reviewed & are unremarkable except as noted in HPI and below Physical Exam Vital Signs: Last Vital Signs Pulse 74 12/26/23 08:06 BP 124/70 12/26/23 08:06 Pulse Ox 98 12/26/23 08:06 Oxygen Delivery Method Room Air 12/26/23 08:06 Const General: cooperative, healthy appearing, comfortable and no acute distress Orientation/consciousness: patient oriented x3 HEENT Head: Yes normal to inspection, Yes No palpable skull fracture present and Yes normocephalic Ears: hearing grossly normal bilaterally, external ears normal, TM normal on the left, EAC's normal, mastoids normal (no TTP) bilaterally and TM abnormal (right) bulging, dull, wth effusion, erythematous and with loss of landmarks General nose exam: Normal external nose present Face and sinus: Yes normal facial exam Mouth: Normal oral and palatal mucosa present Teeth and gingiva: dentition normal Throat: Yes posterior oropharynx normal Eyes General: appearance normal, both eyes and all related structures Neck Neck: Yes normal visual inspection, Yes full ROM, Yes no lymphadenopathy, Yes no meningeal signs, Yes trachea midline and Yes supple Resp Effort & Inspection: normal respiratory effort and able to speak in complete sentences Skin General skin exam: no rashes or lesions noted Neuro General: patient oriented x3 and no meningeal signs Assessment & Plan Assessment & Plan (1) Otitis media of right ear: Code(s): H66.91 - Otitis media, unspecified, right ear Qualifiers: Otitis media type: suppurative Chronicity: acute Recurrence: non-recurrent Spontaneous tympanic membrane rupture: without spontaneous rupture Qualified Code(s): H66.001 - Acute suppurative otitis media without spontaneous rupture of ear drum, right ear Plan: We will treat with amoxicillin, sent antibiotics to pharmacy. Recommended if her pain got worse or she had any change in her hearing to return to the clinic or follow up with her PCP. Plan See above Medications: New amoxicillin 500 mg PO Q12H 20 tabs 0RF Coding Level of Care Code Est Pt Level 3 (87036) Diagnoses Non-recurrent acute suppurative otitis media of right ear without spontaneous rupture of tympanic membrane H66.001 Otitis media type: suppurative Chronicity: acute Recurrence: non-recurrent Spontaneous tympanic membrane rupture: without spontaneous rupture
== END 2023-12-26 08:48 | disposition home or self-care (01) ==
PROVIDERS: PCP Internal Medicine; Visit Provider Physician Assistant
DX: H66.001 Acute suppurative otitis media without spontaneous rupture of ear drum, right ear (principal)

== ENCOUNTER → 2023-12-26 08:04 | Outpatient (BNVA) | payer OTHER, SELFPAY | PROVIDERS: PCP Internal Medicine; Visit Provider Physician Assistant | DX: H66.001 Acute suppurative otitis media without spontaneous rupture of ear drum, right ear (principal) | CPT/HCPCS: 99212 ==

== ENCOUNTER 2024-02-09 10:52 | Outpatient (REF) | payer OTHER, SELFPAY ==
[2024-02-09 11:38] LABS: Estimated Average Glucose 128 mg/dL; Hemoglobin A1C 143.2682 umol/L; Hemoglobin A1c % 6.1 % (<6.0); Total Hemoglobin (HGBA1C) 3354.0075 umol/L
[2024-02-09 11:54] LABS: Alanine Aminotransferase 35 U/L (0-31); Albumin Level 4.3 g/dL (3.5-5.0); Alkaline Phosphatase 70 U/L (39-117); Anion Gap 11 (12-20); Aspartate Amino Transferase 20 U/L (5-31); Bilirubin Total 0.3 mg/dL (0.0-1.0); Blood Urea Nitrogen 12 mg/dL (9-16); Calcium 9.2 mg/dL (8.4-10.2); Carbon Dioxide 26 mmol/L (22-29); Chloride 107 mmol/L (96-108); Cholesterol 252 mg/dL (<200); Estimated Glomerular Filt Rate > 60; Glucose Fasting 91 mg/dL (60-99); HDL Cholesterol 46 mg/dL (>40); LDL Cholesterol Calculated 167 mg/dL (<100); Potassium 4.5 mmol/L (3.3-5.1); Sodium 139 mmol/L (135-145); Total Protein 7.4 g/dL (6.5-8.0); Triglycerides 198 mg/dL (<150)
== END 2024-02-09 10:53 | disposition home or self-care (01) ==
LOC: HO.LAB 10:52
PROVIDERS: PCP Internal Medicine; Visit Provider Physician Assistant
DX: E11.65 Type 2 diabetes mellitus with hyperglycemia (principal); E78.2 Mixed hyperlipidemia; E66.01 Morbid (severe) obesity due to excess calories; Z68.41 Body mass index [BMI] 40.0-44.9, adult
CPT/HCPCS: 36415; 80053; 80061; 83036

== ENCOUNTER 2024-02-12 10:40 | Outpatient (AMB) | payer OTHER, SELFPAY ==
--- NOTE | 2024-02-12 10:57 | MHC.OFFVIS ---
Vital Signs 02/12/24 10:58 Height 5 ft Weight 186 lb 1.122 oz BMI 36.3 BP 108/88 Blood Pressure Location Lt brachial Position Sitting Intake Visit Reasons: DM/CONFIRMED Intake Note: Patient presents today for D2ME follow up visit. Last Diabetic Eye exam: Over one year ago Last Podiatry Visit: Doesn't have one Random Glucose: 134 mg/dl HgA1c:6.1% 02/09/24 Purchaser Required: No Accompanied by: Mother Allergies metformin Adverse Reaction (Intermediate, Verified 02/12/24 10:57) elevated blood sugar Medication List - Last Reconciled 02/12/24 by Tiffanie Santos PA-C blood sugar diagnostic (FreeStyle Lite Strips) Twice a day blood-glucose meter (FreeStyle Lite Meter kit) As directed lancets (FreeStyle Lancets) use daily as directed to check blood glucose tirzepatide (Mounjaro) 5 mg (0.5 mL) subcut QWEEK HPI HPI DM/CONFIRMED: Details: Patient is a 53-year-old female with a significant past medical history of type 2 diabetes and hyperlipidemia presenting today for a follow-up. Dm: Her A1c is 6.1 and down from 8. She is on Mounjaro 5 mg. She has lost about 15 lb with diet changes. She says that is the Mounjaro does cause constipation sometimes. She drinks enough water and tries to eat enough fruits and vegetables. She says that she could improve her activity level. She has never had a colonoscopy. When she is off of Mounjaro she does notice the constipation resolves. She would like to continue with the Mounjaro -Did not tolerate metformin in the past, Ozempic caused constipation, Trulicity cause nausea -we did check labs in her cholesterol was noted to be elevated. In the past she tolerated atorvastatin. Her liver function tests were a little elevated as well. CV: BP today in the office is 108/88. [facility] Medical History (Updated 02/12/24 @ 11:23 by Tiffanie Santos PA-C) Constipation by delayed colonic transit Mixed hyperlipidemia Minimal recurrent major depressive disorder TEREZA (generalized anxiety disorder) Right foot pain Left foot pain Morbid obesity with BMI of 40.0-44.9, adult Surgical History History of endoscopy History of colonoscopy History of tubal ligation History of wisdom tooth extraction Family History Mother Hypertension Diabetes Father Anxiety and depression Sister Hypertension Brother No problems noted. Brother No problems noted. Brother No problems noted. Daughter No problems noted. Son No problems noted. Son No problems noted. Son No problems noted. Social History Housing: Apartment Alcohol intake: current Alcohol intake frequency: does not drink Alcohol type: wine Patient Tobacco Use Status: Never used Tobacco e-Cigarette/Vaping Use: Never Used Second Hand Smoke Exposure: No service: No Current occupational status: unemployed Cognitive needs: No Hearing needs: No Vision needs: No Physical Exam Vital Signs: Last Vital Signs BP 108/88 02/12/24 10:58 BMI result Body Mass Index 36.3 Const Orientation/consciousness: patient oriented x3 Neck Neck: Yes no lymphadenopathy Thyroid: Thyroid normal Carotids: no bruits Resp Auscultation: clear to auscultation bilaterally Cardio Rate: regular rate Rhythm: regular rhythm Heart sounds: S1 normal heart sound present and S2 normal heart sound present Peripheral pulses: dorsalis pedis present Neuro General: patient oriented x3, gait normal and no focal motor deficits Extrem Other: Monofilament sensation intact bilaterally. Vibratory sensation intact bilaterally. Skin intact. General: Yes normal to inspection Results Reviewed Results Reviewed: Laboratory Tests 10/06/23 10/16/23 02/09/24 11:15 10:04 11:04 Sodium 139 Potassium 4.5 Chloride 107 Carbon Dioxide 26 Anion Gap 11 L BUN 12 Creatinine 0.82 Estimated GFR > 60 Fasting Glucose 91 Estimat Average Glucose 128 Hgb A1c (Clinic) 8.0 H Hemoglobin A1c % 6.1 H AST 21 20 ALT 36 H 35 H Triglycerides 189 H 198 H Cholesterol 257 H 252 H LDL Cholesterol, Calc 173 H 167 H HDL Cholesterol 47 46 Assessment & Plan Assessment & Plan (1) Controlled type 2 diabetes mellitus: Code(s): E11.9 - Type 2 diabetes mellitus without complications Category: Medical Qualifiers: Diabetes mellitus rodent exterminator insulin use: without rodent exterminator use Diabetes mellitus complication status: without complication Qualified Code(s): E11.9 - Type 2 diabetes mellitus without complications Plan: Continue Mounjaro. We will continue to monitor. A1c significantly improved from 8-6.1. Encouraged her to continue with diet and exercise. We will start on MiraLax as needed for constipation that is likely caused by Mounjaro. I did also refer her for colonoscopy as she is overdue for this. Advised her to follow up with her PCP in regards to this as well. (2) Mixed hyperlipidemia: Code(s): E78.2 - Mixed hyperlipidemia Category: Medical Plan: We will start atorvastatin. We will recheck labs prior to next appointment. (3) Elevated LFTs: Code(s): R79.89 - Other specified abnormal findings of blood chemistry Category: Medical Plan: As above. Ultrasound ordered. Orders: Orders Comprehensive [place]. Panel Fast Today E11.9 - Type 2 diabetes mellitus without complications, E78.2 - Mixed hyperlipidemia US abdomen comp w elastography Today E11.9 - Type 2 diabetes mellitus without complications, E78.2 - Mixed hyperlipidemia, R79.89 - Other specified abnormal findings of blood chemistry Lipid Panel Today E11.9 - Type 2 diabetes mellitus without complications, E78.2 - Mixed hyperlipidemia Hemoglobin A1c Today E11.9 - Type 2 diabetes mellitus without complications, E78.2 - Mixed hyperlipidemia Referrals Open Access Screening Colonoscopy Referral Z12.11 - Encounter for screening for malignant neoplasm of colon Medications: New polyethylene glycol 3350 (Miralax) 17 grams PO DAILY 510 grams 4RF atorvastatin 10 mg PO BEDTIME 90 tabs 2RF Refilled tirzepatide (Mounjaro) 5 mg (0.5 mL) subcut QWEEK 2 mL 11RF Coding Level of Care Code Est Pt Level 4 (12521) Complex EM visit Add On G2211 Diagnoses Controlled type 2 diabetes mellitus without complication, without long-term current use of insulin E11.9 Diabetes mellitus fci insulin use: without rodent exterminator use Diabetes mellitus complication status: without complication Mixed hyperlipidemia E78.2 Elevated LFTs R79.89
[2024-02-12 10:58] VITALS: BP 108/88; BMI 36.3
[2024-02-12 11:06] LABS: Glucose, Whole Blood 134 mg/dL (60-115)
== END 2024-02-12 11:29 | disposition home or self-care (01) ==
PROVIDERS: PCP Internal Medicine; Visit Provider Physician Assistant
DX: E11.9 Type 2 diabetes mellitus without complications (principal); E78.2 Mixed hyperlipidemia; R79.89 Other specified abnormal findings of blood chemistry

== ENCOUNTER → 2024-02-12 10:40 | Outpatient (BNVA) | payer OTHER, SELFPAY | PROVIDERS: PCP Internal Medicine; Visit Provider Physician Assistant | DX: E11.9 Type 2 diabetes mellitus without complications (principal); E78.2 Mixed hyperlipidemia; R79.89 Other specified abnormal findings of blood chemistry | CPT/HCPCS: 82947; 99212 ==

== ENCOUNTER 2024-06-17 08:04 | Outpatient (AMB) | payer OTHER, SELFPAY ==
--- NOTE | 2024-06-17 08:05 | A.OFFVIS_ITS ---
Vital Signs 06/17/24 08:06 Height 5 ft Weight 174 lb 2.643 oz BMI 34.0 BP 120/76 Blood Pressure Location Rt brachial Position Sitting Pulse 70 Pulse Source Pulse Oximeter Pulse Oximetry (%) 98 Oxygen Delivery Method Room Air Intake Visit Reasons: T2DM Intake Note: Patient presents today for a follow-up on Type 2 Diabetes Mellitus: Last Diabetic eye exam was on: about 4 months ago Last Podiatry exam was on: Patient does not see a Talent Acquisition Project Manager Most recent HbA1c: 5.9%, 06/17/2024 Random Glucose- 110 mg/dL, Today Rebar Worker Required: No Rebar Worker Services: Rebar Worker Present Rebar Worker Name: BRANDON Alcaraz/TEVIN ESCALANTE Accompanied by: Self / Same As Patient Allergies metformin Adverse Reaction (Intermediate, Verified 02/12/24 10:57) elevated blood sugar Medication List - Last Reconciled 06/17/24 by Tiffanie Santos PA-C atorvastatin 10 mg PO BEDTIME blood sugar diagnostic (FreeStyle Lite Strips) Twice a day blood-glucose meter (FreeStyle Lite Meter kit) As directed lancets (FreeStyle Lancets) use daily as directed to check blood glucose polyethylene glycol 3350 (Miralax) 17 grams PO DAILY tirzepatide (Mounjaro) 5 mg (0.5 mL) subcut QWEEK HPI HPI T2DM: Details: Patient is a 54-year-old female with a significant past medical history of type 2 diabetes and hyperlipidemia presenting today for a follow-up. Dm: Her A1c is 5.9. She is on Mounjaro 5 mg. She has lost about 35 lb with diet changes. She wants to increase the dose because she wants more weight loss. She says that the last couple of months she has not had any changes in her weight. She drinks enough water and tries to eat enough fruits and vegetables. She says that she could improve her activity level. Denies any hypoglycemic events. Monitors her blood sugars and states that they are around 100. -Did not tolerate metformin in the past, Ozempic caused constipation, Trulicity cause nausea -we did check labs in her cholesterol was noted to be elevated. In the past she tolerated atorvastatin. Her liver function tests were a little elevated as well. CV: BP today in the office is 108/88. was started on atorvastatin at last visit. [facility] Medical History (Updated 02/12/24 @ 11:23 by Tiffanie Santos PA-C) Constipation by delayed colonic transit Mixed hyperlipidemia Minimal recurrent major depressive disorder TEREZA (generalized anxiety disorder) Right foot pain Left foot pain Morbid obesity with BMI of 40.0-44.9, adult Surgical History History of endoscopy History of colonoscopy History of tubal ligation History of wisdom tooth extraction Family History Mother Hypertension Diabetes Father Anxiety and depression Sister Hypertension Brother No problems noted. Brother No problems noted. Brother No problems noted. Daughter No problems noted. Son No problems noted. Son No problems noted. Son No problems noted. Social History Housing: Apartment Alcohol intake: current Alcohol intake frequency: does not drink Alcohol type: wine Patient Tobacco Use Status: Never used Tobacco e-Cigarette/Vaping Use: Never Used Second Hand Smoke Exposure: No service: No Current occupational status: unemployed Cognitive needs: No Hearing needs: No Vision needs: No Physical Exam Const Orientation/consciousness: patient oriented x3 Neck Neck: Yes no lymphadenopathy Thyroid: Thyroid normal Carotids: no bruits Resp Auscultation: clear to auscultation bilaterally Cardio Rate: regular rate Rhythm: regular rhythm Heart sounds: S1 normal heart sound present and S2 normal heart sound present Peripheral pulses: dorsalis pedis present Neuro General: patient oriented x3, gait normal and no focal motor deficits Extrem Other: Monofilament sensation intact bilaterally. Vibratory sensation intact bilaterally. Skin intact. General: Yes normal to inspection Results AMB Hemoglobin A1c AMB Hemoglobin A1c 5.9 % Last Edit by BRANDON Alcaraz on 06/17/24 08:23 Results Reviewed Results Reviewed: Laboratory Tests 10/06/23 02/09/24 02/12/24 11:15 11:04 11:02 Creatinine 0.82 Estimated GFR > 60 Glucose (Clinic) 134 H Hgb A1c (Clinic) 8.0 H Hemoglobin A1c % 6.1 H AST 20 ALT 35 H Triglycerides 198 H Cholesterol 252 H LDL Cholesterol, Calc 167 H HDL Cholesterol 46 Assessment & Plan Assessment & Plan (1) Controlled type 2 diabetes mellitus: Code(s): E11.9 - Type 2 diabetes mellitus without complications Category: Medical Qualifiers: Diabetes mellitus long term care pharmacist insulin use: without fdc use Diabetes mellitus complication status: without complication Qualified Code(s): E11.9 - Type 2 diabetes mellitus without complications Plan: Very well-controlled. Increase Mounjaro. She will let me know if she is unable to tolerate this. (2) Morbid obesity with BMI of 40.0-44.9, adult: Code(s): E66.01 - Morbid (severe) obesity due to excess calories; Z68.41 - Body mass index [BMI] 40.0-44.9, adult Category: Medical Plan: She has reduced her BMI to 34. We have increased Mounjaro. Encouraged her to continue with exercise and healthy diet. (3) Mixed hyperlipidemia: Code(s): E78.2 - Mixed hyperlipidemia Category: Medical Plan: She recently has only been compliant with the atorvastatin. We will recheck lipids and LFTs. Advised that she should get her labs done. Medications: New tirzepatide (Mounjaro) 7.5 mg (0.5 mL) subcut QWEEK 2 mL 5RF Refilled atorvastatin 10 mg PO BEDTIME 90 tabs 2RF Discontinued tirzepatide (Mounjaro) Discontinued Reason: Doctor's Order 5 mg (0.5 mL) subcut QWEEK 2 mL 11RF Coding Level of Care Code Est Pt Level 4 (24610) Complex EM visit Add On G2211 Diagnoses Controlled type 2 diabetes mellitus without complication, without long-term current use of insulin E11.9 Diabetes mellitus long term care pharmacist insulin use: without long term care pharmacist use Diabetes mellitus complication status: without complication Morbid obesity with BMI of 40.0-44.9, adult E66.01; Z68.41 Mixed hyperlipidemia E78.2
[2024-06-17 08:06] VITALS: BP 120/76; PULSE 70; O2SAT 98; BMI 34.0
[2024-06-17 08:16] LABS: Glucose, Whole Blood 110 mg/dL (60-115)
== END 2024-06-17 08:24 | disposition home or self-care (01) ==
LOC: HO.ENCR 08:04
PROVIDERS: PCP Internal Medicine; Visit Provider Physician Assistant
DX: E11.9 Type 2 diabetes mellitus without complications (principal); E66.01 Morbid (severe) obesity due to excess calories; Z68.41 Body mass index [BMI] 40.0-44.9, adult; E78.2 Mixed hyperlipidemia

== ENCOUNTER → 2024-06-17 08:04 | Outpatient (BNVA) | payer OTHER, SELFPAY | PROVIDERS: PCP Internal Medicine; Visit Provider Physician Assistant | DX: E11.9 Type 2 diabetes mellitus without complications (principal); E66.01 Morbid (severe) obesity due to excess calories; E78.2 Mixed hyperlipidemia; Z68.41 Body mass index [BMI] 40.0-44.9, adult; Z79.899 Other long term (current) drug therapy | CPT/HCPCS: 82947; 83036; 99212 ==

== ENCOUNTER 2024-09-23 07:59 | Outpatient (REF) | payer OTHER, SELFPAY ==
[2024-09-23 08:50] LABS: Hemoglobin A1C 138.8646 umol/L; Total Hemoglobin (HGBA1C) 3541.4812 umol/L
[2024-09-23 09:22] LABS: Alanine Aminotransferase 29 U/L (0-31); Albumin Level 4.4 g/dL (3.5-5.0); Alkaline Phosphatase 66 U/L (39-117); Anion Gap 9 (12-20); Aspartate Amino Transferase 19 U/L (5-31); Blood Urea Nitrogen 11 mg/dL (9-16); Calcium 9.6 mg/dL (8.4-10.2); Carbon Dioxide 30 mmol/L (22-29); Chloride 107 mmol/L (96-108); Cholesterol 263 mg/dL (<200); Estimated Glomerular Filt Rate > 60; HDL Cholesterol 48 mg/dL (>40); Potassium 5.0 mmol/L (3.3-5.1); Sodium 141 mmol/L (135-145); Total Protein 7.3 g/dL (6.5-8.0); Triglycerides 205 mg/dL (<150)
== END 2024-09-23 08:00 | disposition home or self-care (01) ==
LOC: HO.LAB 07:59
PROVIDERS: Visit Provider Physician Assistant
DX: E11.65 Type 2 diabetes mellitus with hyperglycemia (principal); E66.01 Morbid (severe) obesity due to excess calories; Z68.38 Body mass index [BMI] 38.0-38.9, adult; E78.2 Mixed hyperlipidemia; Z79.899 Other long term (current) drug therapy; Z13.9 Encounter for screening, unspecified; Z79.85 Long-term (current) use of injectable non-insulin antidiabetic drugs
CPT/HCPCS: 36415; 80053; 80061; 82947; 83036; 99212

== ENCOUNTER 2024-09-23 08:19 | Outpatient (AMB) | payer OTHER, SELFPAY ==
[2024-09-23 08:39] VITALS: BP 110/76; PULSE 64; O2SAT 97; BMI 32.2
--- NOTE | 2024-09-23 08:39 | A.OFFVIS_ITS ---
Vital Signs 09/23/24 08:39 Height 5 ft Weight 164 lb 14.492 oz BMI 32.2 BP 110/76 Blood Pressure Location Lt brachial Position Sitting Pulse 64 Pulse Source Pulse Oximeter Pulse Oximetry (%) 97 Oxygen Delivery Method Room Air Intake Visit Reasons: T2DM Intake Note: Patient present today for Type 2 Diabetes Mellitus Last Diabetic eye exam: 07/2024 Last Podiatry Visit: Doesn't have one Random Glucose: 103 mg/dl HgA1C: 6.0% Retail Operations Manager Required: No Accompanied by: Self / Same As Patient Allergies metformin Adverse Reaction (Intermediate, Verified 09/23/24 08:49) elevated blood sugar Medication List - Last Reconciled 09/23/24 by Tiffanie Santos PA-C atorvastatin 10 mg PO BEDTIME blood sugar diagnostic (FreeStyle Lite Strips) Twice a day blood-glucose meter (FreeStyle Lite Meter kit) As directed lancets (FreeStyle Lancets) use daily as directed to check blood glucose polyethylene glycol 3350 (Miralax) 17 grams PO DAILY tirzepatide (Mounjaro) 7.5 mg (0.5 mL) subcut QWEEK HPI HPI T2DM: Details: Patient is a 54-year-old female with a significant past medical history of type 2 diabetes and hyperlipidemia presenting today for a follow-up. Dm: Her A1c is 5.7. She is on Mounjaro 7.5 mg. She has lost about 50 lb with diet changes. No adverse effects to this medication. She wants to increase dosage to see more weight loss as she is seeing some plateauing of numbers over the last month. Denies any hypoglycemic events. Monitors her blood sugars and states that they are around 100. -Did not tolerate metformin in the past, Ozempic caused constipation, Trulicity cause nausea -we did check labs in her cholesterol was noted to be elevated. She was started on atorvastatin and states that she does take this but not every day. She says that she takes it other or a couple times a week. CV: BP today in the office is 110/76. was started on atorvastatin at last visit. She believes she is tolerating this. [facility] Medical History (Updated 02/12/24 @ 11:23 by Tiffanie Santos PA-C) Constipation by delayed colonic transit Mixed hyperlipidemia Minimal recurrent major depressive disorder TEREZA (generalized anxiety disorder) Right foot pain Left foot pain Morbid obesity with BMI of 40.0-44.9, adult Surgical History History of endoscopy History of colonoscopy History of tubal ligation History of wisdom tooth extraction Family History Mother Hypertension Diabetes Father Anxiety and depression Sister Hypertension Brother No problems noted. Brother No problems noted. Brother No problems noted. Daughter No problems noted. Son No problems noted. Son No problems noted. Son No problems noted. Social History Housing: Apartment Alcohol intake: current Alcohol intake frequency: does not drink Alcohol type: wine Patient Tobacco Use Status: Never used Tobacco e-Cigarette/Vaping Use: Never Used Second Hand Smoke Exposure: No service: No Current occupational status: unemployed Cognitive needs: No Hearing needs: No Vision needs: No Physical Exam Vital Signs: Last Vital Signs Pulse 64 09/23/24 08:39 BP 110/76 09/23/24 08:39 Pulse Ox 97 09/23/24 08:39 Oxygen Delivery Method Room Air 09/23/24 08:39 BMI result Body Mass Index 32.2 Const Orientation/consciousness: patient oriented x3 Neck Neck: Yes no lymphadenopathy Thyroid: Thyroid normal Carotids: no bruits Resp Auscultation: clear to auscultation bilaterally Cardio Rate: regular rate Rhythm: regular rhythm Heart sounds: S1 normal heart sound present and S2 normal heart sound present Peripheral pulses: dorsalis pedis present Neuro General: patient oriented x3, gait normal and no focal motor deficits Extrem Other: Monofilament sensation intact bilaterally. Vibratory sensation intact bilaterally. Skin intact. General: Yes normal to inspection Results AMB Hemoglobin A1c AMB Hemoglobin A1c 6.0 % Last Edit by BRANDON Ortiz on 09/23/24 09:16 Results Reviewed Results Reviewed: Laboratory Last Values Glucose (Clinic) 103 mg/dL (60-115) 09/23/24 08:51 Assessment & Plan Assessment & Plan (1) Controlled type 2 diabetes mellitus: Code(s): E11.9 - Type 2 diabetes mellitus without complications Category: Medical Plan: Increase Mounjaro to 10 mg weekly Follow up in 3 months. Sooner if needed. Encouraged her to continue with diet and exercise. (2) Mixed hyperlipidemia: Code(s): E78.2 - Mixed hyperlipidemia Category: Medical Plan: Lipids are pending. She did complete this prior to appointment today however, the results are not back yet. She will continue with the atorvastatin. Encouraged compliance. (3) BMI 38.0-38.9,adult: Code(s): Z68.38 - Body mass index [BMI] 38.0-38.9, adult Category: Medical Plan: Increase Mounjaro. Reviewed increase protein intake, reduce carbohydrate intake and increase physical activity as tolerated. Orders: Orders AMB Hemoglobin A1c Today E11.9 - Type 2 diabetes mellitus without complications, Z13.9 - Encounter for screening, unspecified Medications: New tirzepatide (Mounjaro) 10 mg (0.5 mL) subcut QWEEK 6 mL 3RF Discontinued tirzepatide (Mounjaro) Discontinued Reason: Doctor's Order 7.5 mg (0.5 mL) subcut QWEEK 2 mL 5RF Coding Level of Care Code Est Pt Level 4 (42967) Complex EM visit Add On G2211 Diagnoses Controlled type 2 diabetes mellitus E11.9 Mixed hyperlipidemia E78.2 BMI 38.0-38.9,adult Z68.38
[2024-09-23 08:57] LABS: Glucose, Whole Blood 103 mg/dL (60-115)
== END 2024-09-23 09:10 | disposition home or self-care (01) ==
LOC: HO.ENCR 08:19
PROVIDERS: PCP Internal Medicine; Visit Provider Physician Assistant
DX: E11.9 Type 2 diabetes mellitus without complications (principal); E78.2 Mixed hyperlipidemia; Z68.38 Body mass index [BMI] 38.0-38.9, adult; Z13.9 Encounter for screening, unspecified

== ENCOUNTER 2024-12-16 09:33 | Outpatient (AMB) | payer OTHER, SELFPAY ==
--- NOTE | 2024-12-16 09:41 | A.OFFVIS_ITS ---
Vital Signs 12/16/24 09:45 Height 5 ft Weight 152 lb 1.903 oz BMI 29.7 BP 138/88 Blood Pressure Location Rt brachial Position Sitting Pulse 80 Pulse Source Pulse Oximeter Intake Visit Reasons: T2DM Intake Note: Patient present today for Type 2 Diabetes Mellitus Last Diabetic eye exam: DUE, needs a new referral Last Podiatry Visit: Patient does not see a Casserole Preparer Random Glucose: 82 mg/dL HgA1C: 5.3%, 12/16/2024 Fundraising Officer Required: No Accompanied by: Mother Allergies metformin Adverse Reaction (Intermediate, Verified 12/16/24 09:51) elevated blood sugar HPI HPI T2DM: Details: Patient is a 54-year-old female with a significant past medical history of type 2 diabetes and hyperlipidemia presenting today for a follow-up. Dm: Her A1c i 5.3. She is on Mounjaro 10 mg. She has lost about 65 lb with diet changes. No adverse effects to this medication Denies any hypoglycemic events. Monitors her blood sugars and states that they are around 100. -Did not tolerate metformin in the past, Ozempic caused constipation, Trulicity cause nausea -we did check labs in her cholesterol was noted to be elevated. She was started on atorvastatin and states that she does take this but not every day. She says that she takes it other or a couple times a week. CV: BP today in the office is 124/68. was started on atorvastatin at last visit but not taking this consistently. She believes she is tolerating this. [facility] Medical History (Updated 02/12/24 @ 11:23 by Tiffanie Santos PA-C) Constipation by delayed colonic transit Mixed hyperlipidemia Minimal recurrent major depressive disorder TEREZA (generalized anxiety disorder) Right foot pain Left foot pain Morbid obesity with BMI of 40.0-44.9, adult Surgical History History of endoscopy History of colonoscopy History of tubal ligation History of wisdom tooth extraction Family History Mother Hypertension Diabetes Father Anxiety and depression Sister Hypertension Brother No problems noted. Brother No problems noted. Brother No problems noted. Daughter No problems noted. Son No problems noted. Son No problems noted. Son No problems noted. Social History Housing: Apartment Alcohol intake: current Alcohol intake frequency: does not drink Alcohol type: wine Patient Tobacco Use Status: Never used Tobacco e-Cigarette/Vaping Use: Never Used Second Hand Smoke Exposure: No service: No Current occupational status: unemployed Cognitive needs: No Hearing needs: No Vision needs: No Physical Exam Vital Signs: Last Vital Signs Pulse 80 12/16/24 09:45 BP 138/88 12/16/24 09:45 BMI result Body Mass Index 29.7 Const Orientation/consciousness: patient oriented x3 Neck Neck: Yes no lymphadenopathy Thyroid: Thyroid normal Carotids: no bruits Resp Auscultation: clear to auscultation bilaterally Cardio Rate: regular rate Rhythm: regular rhythm Heart sounds: S1 normal heart sound present and S2 normal heart sound present Peripheral pulses: dorsalis pedis present Neuro General: patient oriented x3, gait normal and no focal motor deficits Extrem Other: Monofilament sensation intact bilaterally. Vibratory sensation intact bilaterally. Skin intact. General: Yes normal to inspection Results AMB Hemoglobin A1c AMB Hemoglobin A1c 5.3 % Last Edit by BRANDON Alcaraz on 12/16/24 10:02 Results Reviewed Results Reviewed: Laboratory Last Values Glucose (Clinic) 82 mg/dL (60-115) 12/16/24 09:54 Laboratory Tests 09/23/24 09/23/24 08:11 08:56 Hgb A1c (Clinic) 6.0 Hemoglobin A1c % 5.7 AST 19 ALT 29 Triglycerides 205 H Cholesterol 263 H LDL Cholesterol, Calc 174 H HDL Cholesterol 48 Assessment & Plan Assessment & Plan (1) Controlled type 2 diabetes mellitus: Code(s): E11.9 - Type 2 diabetes mellitus without complications Category: Medical Plan: contine Mounjaro to 10 mg weekly Follow up in 6 months. Sooner if needed. Encouraged her to continue with diet and exercise. (2) Mixed hyperlipidemia: Code(s): E78.2 - Mixed hyperlipidemia Category: Medical Plan: Encouraged compliance with atorvastatin. (3) BMI 38.0-38.9,adult: Code(s): Z68.38 - Body mass index [BMI] 38.0-38.9, adult Category: Medical Plan: lost 10 more lbs recently Reviewed increase protein intake, reduce carbohydrate intake and increase physical activity as tolerated. Orders: Orders AMB Hemoglobin A1c Today E11.9 - Type 2 diabetes mellitus without complications Coding Level of Care Code Est Pt Level 4 (31335) Complex EM visit Add On G2211 Diagnoses Controlled type 2 diabetes mellitus E11.9 Mixed hyperlipidemia E78.2 BMI 38.0-38.9,adult Z68.38
[2024-12-16 09:45] VITALS: BP 138/88; PULSE 80; BMI 29.7
[2024-12-16 09:58] LABS: Glucose, Whole Blood 82 mg/dL (60-115)
== END 2024-12-16 10:09 | disposition home or self-care (01) ==
LOC: HO.ENCR 09:33
PROVIDERS: PCP Internal Medicine; Visit Provider Physician Assistant
DX: E11.9 Type 2 diabetes mellitus without complications (principal); E78.2 Mixed hyperlipidemia; Z68.38 Body mass index [BMI] 38.0-38.9, adult

== ENCOUNTER → 2024-12-16 09:33 | Outpatient (BNVA) | payer OTHER, SELFPAY | PROVIDERS: PCP Internal Medicine; Visit Provider Physician Assistant | DX: E11.9 Type 2 diabetes mellitus without complications (principal); E78.2 Mixed hyperlipidemia; E66.01 Morbid (severe) obesity due to excess calories; Z68.38 Body mass index [BMI] 38.0-38.9, adult; Z79.84 Long term (current) use of oral hypoglycemic drugs | CPT/HCPCS: 82947; 83036; 99212 ==